=== PATIENT | male | born 1950 | race Caucasian/White ===

== ENCOUNTER 2016-09-17 16:08 | Inpatient (IN) | payer MEDICARE, MEDICAID ==
[2016-09-17] MEDS ORDERED: NORMAL SALINE 1000 ML 1,000 ML IV ONE (16:21)
--- NOTE | 2016-09-17 16:22 | ER Document Report ---
ED Medical Screen (RME) - General Stated Complaint: ABDOMINAL PAIN Notes: patient is a 66 year old male chronic Etoh user drinks one 1/5th etoh daily, had half today abdominal pain at 2pm LLQ abdominal pain with abdominal distension but sister says that distension is normal no emesis, nausea PMH: COPD, HTN I have greeted and performed a rapid initial assessment of this patient. A comprehensive ED assessment and evaluation of the patient, analysis of test results and completion of the medical decision making process will be conducted by additional ED providers. TRAVEL OUTSIDE OF THE [place] IN LAST 30 DAYS: No - Related Data Allergies/Adverse Reactions: No Known Allergies Allergy (Verified 09/17/16 16:18) Past Medical History - Social History Family history: CAD, Hyperlipidemia, Hypertension - Past Medical History Cardiac Medical History: Reports: Hx Hypertension Denies: Hx Heart Attack Pulmonary Medical History: Reports: Hx Bronchitis, Hx COPD Denies: Hx Asthma Neurological Medical History: Denies: Hx Cerebrovascular Accident, Hx Seizures GI Medical History: Denies: Hx Hepatitis, Hx Hiatal Hernia, Hx Ulcer Psychiatric Medical History: Reports: Hx Depression Infectious Medical History: Denies: Hx Hepatitis Past Surgical History: Denies: Hx Open Heart Surgery, Hx Pacemaker - Immunizations Hx Diphtheria, Pertussis, Tetanus Vaccination: No - 2009
[2016-09-17] MEDS ORDERED: LIDOCAINE 2% URO-JET 5 ML KIT MM ONE (17:29)
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
--- NOTE | 2016-09-17 17:57 | ER Document Report ---
ED GI/ - General Mode of Arrival: Ambulatory Information source: Patient TRAVEL OUTSIDE OF THE [place] IN LAST 30 DAYS: No <CHASTITY ASHLEY - Last Filed: 09/17/16 23:25> <ENIO ROBLEDO - Last Filed: 09/23/16 22:47> - General Chief Complaint: Abdominal Pain Stated Complaint: ABDOMINAL PAIN Notes: Patient is a 66-year-old male that presents to the emergency department today with complaints of diffuse abdominal pain. Patient states he drinks alcohol heavily daily, approximately a fifth of liquor a day. Patient states he does not get up in the middle of the night sebastian drink, he has never been in alcohol withdrawal to his knowledge. Patient is vomiting. Patient states he does not have liver disease that he knows of. (CHASTITY ASHLEY) - Related Data Allergies/Adverse Reactions: No Known Allergies Allergy (Verified 09/17/16 16:18) Home Medications: Current Home Medications Albuterol Sulfate [Albuterol Sulfate 2.5mg/3 mL] 3 ml NEB [id number] PRN 09/18/16 [ History] Amlodipine Besylate [Norvasc 10 mg Tablet] 10 mg PO DAILY 09/18/16 [History] Escitalopram Oxalate [Lexapro] 20 mg PO DAILY 09/18/16 [History] Fluticasone/Salmeterol [Advair 250-50 Diskus 14 Dose/Diskus] 1 puff IH BID 09/18 [History] Fluticasone/Vilanterol [Breo Ellipta 100-25 Mcg INH] 1 puff IH DAILY 09/18/16 [ History] Folic Acid [Folvite 1 mg Tablet] 2 mg PO DAILY 09/18/16 [History] Ipratropium/Albuterol Sulfate [Combivent Respimat 4 gm Mdi] 1 puff IH QID [History] Lisinopril [Prinivil] 20 mg PO DAILY 09/18/16 [History] Omeprazole 40 mg PO DAILY 09/18/16 [History] Potassium Chloride [K-Tab ER] 20 meq PO DAILY 09/18/16 [History] Rivaroxaban [Xarelto] 20 mg PO DAILY 09/18/16 [History] Spironolactone [Aldactone] 50 mg PO DAILY 09/18/16 [History] Thiamine HCl [Thiamine 100 mg Tablet] 100 mg PO DAILY 09/18/16 [History] Tiotropium [place] [Spiriva Handihaler 18 mcg/dose (30 Dose)] 18 mcg IH DAILY [History] Trazodone HCl [Desyrel] 100 mg PO BID 09/18/16 [History] Past Medical History - General Information source: Patient - Social History Smoking Status: Current Every Day Smoker Cigarette use (# per day): Yes Chew tobacco use (# tins/day): No Frequency of alcohol use: Heavy Drug Abuse: None Lives with: Family Family History: Reviewed & Not Pertinent, Other - SIBLING W/ SUDDEN CARDIAC IN HER 60's Patient has suicidal ideation: No Patient has homicidal ideation: No - Past Medical History Cardiac Medical History: Reports: Hx Hypertension Pulmonary Medical History: Reports: Hx Bronchitis, Hx COPD Psychiatric Medical History: Reports: Hx Depression Surgical Hx: Negative - Immunizations Hx Diphtheria, Pertussis, Tetanus Vaccination: No - 2009 Hx Pneumococcal Vaccination: 07/12/10 <CHASTITY ASHLEY - Last Filed: 09/17/16 23:25> Review of Systems - Review of Systems Constitutional: No symptoms reported EENT: No symptoms reported Cardiovascular: No symptoms reported Respiratory: No symptoms reported Gastrointestinal: See HPI, Abdominal pain. denies: Vomiting Genitourinary: No symptoms reported Male Genitourinary: No symptoms reported Musculoskeletal: No symptoms reported Skin: No symptoms reported Hematologic/Lymphatic: No symptoms reported Neurological/Psychological: No symptoms reported -: Yes All other systems reviewed and negative <CHASTITY ASHLEY - Last Filed: 09/17/16 23:25> Physical Exam - General General appearance: Appears well, Alert In distress: None - HEENT Head: Normocephalic, Atraumatic Eyes: Normal Extraocular movements intact: Yes - Respiratory Respiratory status: No respiratory distress Chest status: Nontender Breath sounds: Normal Chest palpation: Normal - Cardiovascular Rhythm: Regular Heart sounds: Normal auscultation Murmur: No - Abdominal Distension: Distended Bowel sounds: Hypoactive Tenderness: Other - Positive guarding, rebound, and rigidity. - Extremities General upper extremity: Normal inspection, Normal ROM. No: Edema General lower extremity: Normal inspection, Normal ROM. No: Edema - Neurological Neuro grossly intact: Yes Cognition: Normal Orientation: AAOx4 Speech: Normal - Psychological Associated symptoms: Normal affect, Normal mood - Skin Skin Temperature: Warm Skin Moisture: Dry Skin Color: Normal <CHASTITY ASHLEY - Last Filed: 09/17/16 23:25> Course - Laboratory Result Diagrams: 09/17/16 17:18 09/17/16 17:18 <CHASTITY ASHLEY - Last Filed: 09/17/16 23:25> - Laboratory Result Diagrams: 09/23/16 04:29 09/23/16 04:29 <MEENAENIO - Last Filed: 09/23/16 22:47> - Re-evaluation Re-evalutation: 09/17/16 18:05 I personally performed the services described in the documentation, reviewed and edited the documentation which was dictated to my scribe in my presence, and it accurately records my words and actions. presents emergency per with acute severe abdominal pain history of alcoholism initially seen and evaluated by Dr. Doe and sent over here for evaluation on the main side. Patient is tachycardic in severe abdominal pain with abdominal distention diffuse tenderness guarding and rebound. Patient is guaiac- negative from below. Asked for an acute flat and upright they stated they were in doing a C-arm procedure. Asked for a stat CT of the abdomen pelvis with IV contrast that they're up in the NICU and they would come this is a were done. Contacted Dr. Fields on his as call me did not respond and paged him at [phone] he called back and came to see the patient. In initially recommended a noncontrast CT and then an IV contrast CT patient was unable to tolerate by mouth contrast as he was vomiting. Patient with a history of cirrhosis chronic alcoholism ascites said she's had increased abdominal distention for months but has not sought out a primary care physician. He takes a lot of medications but only when he feels like it. He is not intoxicated currently says he is no history of withdrawal can go all night and sometimes told her without drinking. He is hypokalemic morning meds for that. Cover with antibiotics for spontaneous bacterial peritonitis his belly is soft no guarding rebound or rigidity. IV fluids and Ativan. Also given thiamine and folate improve with fluids and Ativan. No active signs of withdrawal currently blood pressure 124/84 heart rate 117. Spoke with Dr. Khan who agreed to admit the patient inpatient to IMCU. Covering him with cefotaxime plan interventional radiology drainage of ascitic fluid for analysis tomorrow patient does not have an acute abdomen currently and is not septic. I ordered cefotaxime over an hour ago nurse came today and said that we do not have it in the facility. When ahead and ordered vancomycin and Rocephin. 09/17/16 23:01 09/18/16 00:35 09/18/16 00:50 (ENIO ROBLEDO) - Vital Signs Vital signs: Temp Pulse Resp BP Pulse Ox 97.7 F 74 18 177/80 H 100 09/23/16 19:34 09/23/16 20:06 09/23/16 20:06 09/23/16 19:34 09/23/16 20:06 - Laboratory Laboratory results interpreted by me: 09/17/16 09/17/16 09/17/16 17:18 17:18 17:18 RBC 3.84 L MCV 118 H MCH 41.5 H Seg Neuts % (Manual) 81 H PT Potassium 3.0 L* Chloride 95 L BUN 5 L Glucose 129 H Lactic Acid 4.7 H Magnesium Total Bilirubin 4.3 H Direct Bilirubin 0.7 H AST 173 H Alkaline Phosphatase 299 H Ammonia Albumin 3.0 L Urine Protein Urine Nitrite Urine Bilirubin Urine Urobilinogen 09/17/16 09/17/16 09/17/16 17:18 17:48 17:55 RBC MCV MCH Seg Neuts % (Manual) PT 15.6 H Potassium Chloride BUN Glucose Lactic Acid Magnesium 1.1 L* Total Bilirubin Direct Bilirubin AST Alkaline Phosphatase Ammonia Albumin Urine Protein 30 H Urine Nitrite POSITIVE H Urine Bilirubin MODERATE H Urine Urobilinogen 4.0 H 09/17/16 18:30 RBC MCV MCH Seg Neuts % (Manual) PT Potassium Chloride BUN Glucose Lactic Acid Magnesium Total Bilirubin Direct Bilirubin AST Alkaline Phosphatase Ammonia 42.0 H Albumin Urine Protein Urine Nitrite Urine Bilirubin Urine Urobilinogen Critical Care Note - Critical Care Note Total time excluding time spent on procedures (mins): 60 <ENIO ROBLEDO - Last Filed: 09/23/16 22:47> Discharge <CHASTITY ASHLEY - Last Filed: 09/17/16 23:25> - Discharge Admitting Provider: Hospitalist Unit Admitted: IMCU <ENIO ROBLEDO - Last Filed: 09/23/16 22:47> - Discharge Clinical Impression: Hepatic cirrhosis Abdominal pain Qualifiers: Abdominal location: unspecified location Qualified Code(s): R10.9 - Unspecified abdominal pain Ascites Qualifiers: Ascites type: due to alcoholic cirrhosis Qualified Code(s): K70.31 - Alcoholic cirrhosis of liver with ascites Disposition: ADMITTED INPATIENT Scribe Documentation - Scribe Written by Scribe:: Justus Hansen, [id number] 09/17/2016 acting as scribe for :: Meena <CHASTITY ASHLEY - Last Filed: 09/17/16 23:25>
[2016-09-17 17:59] LABS: HEMATOCRIT 45.5 % (37.9-51.0); HEMOGLOBIN 15.9 g/dL (13.5-17.0); HGB HCT DIFFERENCE 2.2; MEAN CORPUSCULAR HEMOGLOBIN 41.5 pg (27.0-33.4); MEAN CORPUSCULAR HGB CONC 35.1 g/dL (32.0-36.0); MEAN CORPUSCULAR VOLUME 118 fl (80-97); RED BLOOD COUNT 3.84 10^6/uL (4.35-5.55); WHITE BLOOD COUNT 4.9 10^3/uL (4.0-10.5)
[2016-09-17] MEDS ORDERED: FENTANYL CITRATE INJ/PF 100 MCG/2 ML AMPUL IV ONE (18:03)
[2016-09-17 18:14] LABS: ALANINE AMINOTRANSFERASE 52 U/L (21-72); ALCOHOL 63 mg/dL (NONE DETECTED); ALKALINE PHOSPHATASE 299 U/L (38-126); ANION GAP 16 (5-19); ASPARTATE AMINO TRANSFERASE 173 U/L (17-59); BILIRUBIN,DIRECT 0.7 mg/dL (0.0-0.3); BILIRUBIN,TOTAL 4.3 mg/dL (0.2-1.3); BLOOD UREA NITROGEN 5 mg/dL (7-20); CALCIUM 8.9 mg/dL (8.4-10.2); CARBON DIOXIDE 27 mmol/L (22-30); CHLORIDE 95 mmol/L (98-107); CREATININE RESULT 0.67 mg/dL (0.52-1.25); GLUCOSE 129 mg/dL (75-110); LIPASE 42.7 U/L (23-300); SODIUM 137.6 mmol/L (137-145); TOTAL PROTEIN 7.4 g/dL (6.3-8.2)
[2016-09-17 18:24] LABS: PROTHROMBIN TIME 15.6 SEC (11.4-15.4)
[2016-09-17 18:25] LABS: PARTIAL THROMBOPLASTIN TIME 33.1 SEC (23.5-35.8)
[2016-09-17 18:30] LABS: BASOPHILS % (MANUAL) 0 % (0-2); EOSINOPHILS % (MANUAL) 1 % (0-6); LYMPHOCYTES % (MANUAL) 13 % (13-45); TOTAL CELLS COUNTED 100
[2016-09-17 18:32] LABS: ANISOCYTOSIS SLIGHT; TARGET CELLS SLIGHT; TOXIC GRANULATION SLIGHT
[2016-09-17 19:28] LABS: APPEARANCE,URINE SLIGHTLY-CLOUDY; BILIRUBIN,URINE MODERATE (NEGATIVE); GLUCOSE, URINE NEGATIVE (NEGATIVE); KETONES,URINE NEGATIVE (NEGATIVE); LEUKOCYTE ESTERASE,URINE NEGATIVE (NEGATIVE); NITRITE,URINE POSITIVE (NEGATIVE); PROTEIN,URINE 30 mg/dL (NEGATIVE)
--- NOTE | 2016-09-17 20:06 | EKG REPORT ---
SEVERITY:- ABNORMAL ECG - SINUS TACHYCARDIA PROBABLE INFERIOR INFARCT, OLD VPC : Confirmed by: Bennie Estrella 17-Sep-2016 20:05:49
[2016-09-17] MEDS ORDERED: ONDANSETRON HCL INJ/PF 4 MG/2 ML SDV IV ONE (20:28)
[2016-09-17] MEDS ORDERED: ONDANSETRON HCL INJ/PF 4 MG/2 ML SDV ONE (20:31)
[2016-09-17] MEDS ORDERED: LORAZEPAM INJ 2 MG/1 ML VIAL IV ONE (22:55)
[2016-09-17] MEDS ORDERED: CEFOTAXIME INJ 1 GM VIAL IV ONE (23:03)
[2016-09-18] MEDS: POTASSI CL 20 MEQ/50 ML RIDER 50 ML IV SCH ×2 (00:09→02:17)
[2016-09-18] MEDS: NORMAL SALINE 1000 ML 1,000 ML IV PRN ×2 (00:11→01:41)
[2016-09-18] MEDS ORDERED: THIAMINE HCL 100 MG, FOLIC ACID 1 MG in NORMAL SALINE 50 ML IV SCH (00:45)
[2016-09-18] MEDS ORDERED: CEFTRIAXONE INJ 1000 MG VIAL IV ONE (00:49)
[2016-09-18] MEDS ORDERED: VANCOMYCIN HCL INJ 1000 MG VIAL IV ONE (00:49)
[2016-09-18] MEDS ORDERED: THIAMINE HCL INJ 200 MG/2 ML VIAL IV SCH (01:00)
[2016-09-18] MEDS ORDERED: FOLIC ACID INJ 5 MG/1 ML 10 ML VIAL IV SCH (01:00)
[2016-09-18] MEDS: MAGNESIUM SULFATE/D5W 100 ML IV SCH ×2 (01:49→04:14)
[2016-09-18] MEDS ORDERED: NICOTINE 21 MG/24 HR PATCH.TD24 TD PRN (02:54)
[2016-09-18] MEDS ORDERED: MVI, ADULT NO.1 WITH VIT K INJ 10 ML VIAL IV PRN (03:02)
[2016-09-18] MEDS ORDERED: MAGNESIUM SULFATE/D5W 1 GM/100 ML RTUPB IV ONE (03:15)
[2016-09-18 03:31] LABS: URINE BARBITURATES SCREEN NEGATIVE; URINE METHADONE SCREEN NEGATIVE; URINE OPIATES LOW NEGATIVE; URINE PHENCYCLIDINE SCREEN NEGATIVE
--- NOTE | 2016-09-18 03:42 | PDOC H&P ---
History of Present Illness Admission Date/PCP: 09/18/16 00:53 SUSHIL GAO MD Patient complains of: Abdominal pain History of Present Illness: LUKE BEE is a 66 year old male with long-standing alcohol abuse , approximately a fifth of whiskey per day, along with pack and a half of cigarettes per day, COPD, recent lower extremity DVT, chronic noncompliance with medications and instructions, arthritis, easy bruising, and mild esophageal reflux disease, who presents to the emergency room for evaluation of a less than 24-hour history of intermittent cramping diffuse abdominal pain. Certain movements seem to make the pain worse. Less pain now. Denied nausea vomiting, but has had a number of episodes of same in the emergency room. Admitted to positive chills. No diarrhea or dysuria, or chest pain. States his abdomen has been steadily swelling over the last several days. Denies any prior history of abdominal swelling. Patient denies any history of "fluid on my belly." Prior to my seeing the patient, patient was seen by the on-call general surgeon. Note is pending. Patient has been discussed with emergency room physician who evaluated the patient. Patient himself thought he was in [place], [place]. Was not sure why he was in the emergency room.. Laboratory results are listed in [facility] and are reviewed. X-ray summary results are listed below, with full report(s) reviewed. . EKG reviewed. March 2015. Social history/personal habits: . Lives alone. One daughter. Unemployed. Personal habits as noted above. Denies illicit drug use. Allergies/adverse reactions NKDA. Home medications Home medications initially autopopulated into [employer] may not accurately reflect patient's true medications, dosages, and/or frequencies. Patient freely admits he is not compliant with his medications. Unfortunately, patient uncertain of medications/dosages/frequencies. Order has been entered for staff to contact family, outpatient physician, and/or pharmacy to more accurately determine medications, dosages, and frequencies and to contact physician when that has been accomplished. REVIEW OF SYSTEMS: Constitutional: See history and present illness. Eyes: Wears glasses. ENT: No swallowing problems or complaints. No hearing problems or complaints. Pulmonary: No current complaints. Cardiovascular: No current complaints, including chest pain. Gastrointestinal: See history and present illness. Skin: No current complaints, including rashes. Hematologic: Easy bruising. Neurologic: No current complaints, including numbness or tingling. Musculoskeletal: Joint pain from arthritis. Psychiatric: Mild depression; denies suicidal or homicidal ideation. Endocrine: No current complaints, including polyuria. Genitourinary: No current complaints, including dysuria. PHYSICAL EXAMINATION: Temperature 97.3. Blood pressure 135/72. Respirations are 17 and unlabored. 98% saturation on room air. 5 feet 11 inches tall. 68 kg. BMI 20.9 kg/m. Weight seems a bit low; will have nursing staff reweigh patient. Chronically ill somewhat disheveled bearded male who appears a bit older than his stated age. Initially asleep, but awakens easily. Appears somewhat fatigued. Otherwise, pleasant awake alert and cooperative. Mildly anxious, without agitation. Skin is warm and dry. No grossly obvious evidence of rash in areas of skin examined. No subcutaneous nodules palpated. ENT: Hearing grossly normal to normal conversation. Tongue midline on protrusion pink and slightly tacky. Eyes: No scleral icterus. Pupils equal and reactive to light at 4 mm. [place] conjunctivae. Neck is supple and nontender to gentle active range of motion and palpation. Midline trachea. No palpable thyroid nodule mass enlargement or tenderness. Lymphatic: No palpable cervical or clavicular nodes. Neck and lymphatic exams limited by patient body habitus. Psychiatric: Fair insight into acute and chronic medical issues. See history and present illness.. Lungs: Auscultation reveals clear and equal breath sounds bilaterally. No use of accessory respiratory muscles. Cardiovascular: Heart regular rate and rhythm, without gallop murmur or rub. No carotid or abdominal aortic bruits. No ankle or pedal edema. Faintly palpable dorsalis pedis pulses. Abdomen: soft, rather distended with positive bowel sounds. Unable to adequately evaluate abdomen for masses or organomegaly due to distention. Scant primarily upper abdominal diffuse discomfort to palpation. Certainly no evidence of guarding or peritoneal signs. Extremities: Feet are warm and dry. No calf tenderness to compression. No grossly obvious visual evidence of calf swelling. Gentle manipulation of lower extremities fails to reveal any obvious evidence of injury or instability to knees hips or ankles. Neurologic: Moves upper extremities grossly normally. Patellar reflexes absent. Absent Babinski. Light touch is intact at feet. Dorsiflexion and plantarflexion of feet 5 / 5 and symmetric. Past Medical History Cardiac Medical History: Reports: DVT, Hypertension Denies: Myocardial Infarction, Hyperlipidema Pulmonary Medical History: Reports: Bronchitis, Chronic Obstructive Pulmonary Disease (COPD) Denies: Asthma Neurological Medical History: Denies: Hemorrhagic CVA, Ischemic CVA, Seizures Endocrine Medical History: Denies: Diabetes Mellitus Type 1, Diabetes Mellitus Type 2, Hyperthyroidism, Hypothyroidism Renal/ Medical History: Reports: None GI Medical History: Reports: Gastroesophageal Reflux Disease Denies: Cirrhosis, Hepatitis, Hiatal Hernia, Peptic Ulcer Disease Musculoskeltal Medical History: Reports: Arthritis Skin Medical History: Reports: None Psychiatric Medical History: Reports: Alcohol Dependency, Tobacco Dependency Denies: Depression, General Anxiety Disorder, Substance Abuse Hematology: Denies: Anemia, Sickle Cell Disease Infectious Medical History: Denies: Hepatitis B, Hepatitis C Past Surgical History Past Surgical History: Reports: None Social History Information Source: Patient, Emergency Med Personnel, [facility] Records Lives with: Alone Smoking Status: Current Every Day Smoker Frequency of Alcohol Use: Heavy Hx Recreational Drug Use: No Hx Prescription Drug Abuse: No - Advance Directive Resuscitation Status: Full Code Surrogate healthcare decision maker:: His sister Chantale Encinas Family History Family History: Reviewed & Not Pertinent, Other - SIBLING W/ SUDDEN CARDIAC IN HER 60's Parental Family History Reviewed: Yes Children Family History Reviewed: Yes Sibling(s) Family History Reviewed.: Yes Medication/Allergy Home Medications: Albuterol Sulfate [Albuterol Sulfate 2.5mg/3 mL] 3 ml NEB [id number] PRN 09/18/16 Amlodipine Besylate [Norvasc 10 mg Tablet] 10 mg PO DAILY 09/18/16 Escitalopram Oxalate [Lexapro] 20 mg PO DAILY 09/18/16 Fluticasone/Salmeterol [Advair 250-50 Diskus 14 Dose/Diskus] 1 puff IH BID 09/18 Fluticasone/Vilanterol [Breo Ellipta 100-25 Mcg INH] 1 puff IH DAILY 09/18/16 Ipratropium/Albuterol Sulfate [Combivent Respimat 4 gm Mdi] 1 puff IH QID Lisinopril [Prinivil] 20 mg PO DAILY 09/18/16 RX: Folic Acid [Folvite 1 mg Tablet] 2 mg PO DAILY 09/18/16 RX: Omeprazole 40 mg PO DAILY 09/18/16 RX: Potassium Chloride [K-Tab ER] 20 meq PO DAILY 09/18/16 RX: Trazodone HCl [Desyrel] 100 mg PO BID 09/18/16 Rivaroxaban [Xarelto] 20 mg PO DAILY 09/18/16 Spironolactone [Aldactone] 50 mg PO DAILY 09/18/16 Thiamine HCl [Thiamine 100 mg Tablet] 100 mg PO DAILY 09/18/16 Tiotropium Roper [Spiriva Handihaler 18 mcg/dose (30 Dose)] 18 mcg IH DAILY Allergies/Adverse Reactions: No Known Allergies Allergy (Verified 09/17/16 16:18) Physical Exam Vital Signs: Temp Pulse Resp BP Pulse Ox 97.3 F 139 H 18 135/72 H 99 09/17/16 16:21 09/17/16 18:20 09/18/16 02:00 09/18/16 02:00 09/17/16 22:03 Results Impressions: Chest X-Ray 09/17/16 17:47 IMPRESSION: NO ACUTE RADIOGRAPHIC FINDING IN THE CHEST. Abdomen/Pelvis CT 09/17/16 18:03 IMPRESSION: 1. MARKEDLY HETEROGENOUS DIFFUSE LOW-ATTENUATION THROUGHOUT THE LIVER, MOST LIKELY DUE TO CIRRHOSIS. 2. ASCITES. 3. AVASCULAR NECROSIS OF THE RIGHT AND LEFT FEMORAL HEAD, SIMILAR APPEARANCE COMPARED TO THE PRIOR STUDY. 4. SURGICAL CHANGES WITH RIGHT HEMICOLECTOMY. Assessment & Plan - Diagnosis (1) Alcohol intoxication Qualifiers: Complication of substance-induced condition: uncomplicated Qualified Code(s): F10.120 - Alcohol abuse with intoxication, uncomplicated Is this a current diagnosis for this admission?: YesPlan: Alcohol withdrawal protocol, including intravenous Ativan and banana bag. (2) Ascites Qualifiers: Ascites type: due to alcoholic cirrhosis Qualified Code(s): K70.31 - Alcoholic cirrhosis of liver with ascites Is this a current diagnosis for this admission?: YesPlan: Suspected spontaneous bacterial peritonitis. Treatment for same. Will include albumin today and on day 3. Paracentesis. I have strongly encouraged patient not to get out of bed , to avoid a fall with injury. Knee high SCDs for DVT prophylaxis, along with subcutaneous heparin. Impression and plans were discussed with patient, who concurs. Time spent in evaluation and management of patient: 66 minutes. (3) Elevated LFTs Is this a current diagnosis for this admission?: Yes (4) Hepatic encephalopathy Is this a current diagnosis for this admission?: YesPlan: Oral lactulose. (5) Hypokalemia Is this a current diagnosis for this admission?: YesPlan: Supplement With follow-up chemistry. (6) Hypomagnesemia Is this a current diagnosis for this admission?: YesPlan: Supplement With follow-up chemistry. (7) UTI (urinary tract infection) Qualifiers: Urinary tract infection type: site unspecified Is this a current diagnosis for this admission?: YesPlan: Blood and urine cultures. [facility]. (8) History of DVT (deep vein thrombosis) Is this a current diagnosis for this admission?: YesPlan: High risk for systemic anticoagulation, given his alcohol abuse and known chronic noncompliance. (9) Alcohol dependency Qualifiers: Substance use status: with intoxication Complication of substance- induced condition: uncomplicated Qualified Code(s): F10.220 - Alcohol dependence with intoxication, uncomplicated Is this a current diagnosis for this admission?: Yes (10) COPD (chronic obstructive pulmonary disease) Qualifiers: COPD type: unspecified COPD Qualified Code(s): J44.9 - Chronic obstructive pulmonary disease, unspecified Is this a current diagnosis for this admission?: YesPlan: When necessary DuoNeb.Resume home medications as appropriate once these have been determined and reviewed. (11) Cirrhosis Qualifiers: Hepatic cirrhosis type: alcoholic cirrhosis Ascites presence: with ascites Qualified Code(s): K70.31 - Alcoholic cirrhosis of liver with ascites Is this a current diagnosis for this admission?: Yes (12) Noncompliance Is this a current diagnosis for this admission?: Yes (13) Tobacco dependency Is this a current diagnosis for this admission?: YesPlan: When necessary nicotine patch. - Inpatient Certification Based on my medical assessment, after consideration of the patient's comorbidities, presenting symptoms, or acuity I expect that the services needed warrant INPATIENT care.: Yes I certify that my determination is in accordance with my understanding of Medicare's requirements for reasonable and necessary INPATIENT services [42 CFR 412.3e].: Yes Medical Necessity: Significant Comorbidiites Make Outpatient Treatment Too Risky , Need Close Monitoring Due to Risk of Patient Decompensation, Need For Continuous Telemetry Monitoring, Need for IV Antibiotics, Risk of Complication if Not Cared For in Hospital, Risk of Diagnosis Which Will Require Inpatient Eval/Care/Monitoring Post Hospital Care: D/C or Transfer Summary
[2016-09-18 03:57] LABS: HEMATOCRIT 40.9 % (37.9-51.0); HEMOGLOBIN 14.3 g/dL (13.5-17.0); MEAN CORPUSCULAR HEMOGLOBIN 41.9 pg (27.0-33.4); MEAN CORPUSCULAR HGB CONC 34.9 g/dL (32.0-36.0); RED BLOOD COUNT 3.41 10^6/uL (4.35-5.55); RED CELL DISTRIBUTION WIDTH 14.3 % (11.5-14.0)
[2016-09-18] MEDS ORDERED: LACTULOSE SYRUP 20 GM/30 ML UDCUP PO ONE (04:00)
[2016-09-18 04:04] LABS: ALANINE AMINOTRANSFERASE 48 U/L (21-72); ALBUMIN 2.6 g/dL (3.5-5.0); ALKALINE PHOSPHATASE 202 U/L (38-126); ANION GAP 13 (5-19); ASPARTATE AMINO TRANSFERASE 142 U/L (17-59); BILIRUBIN,DIRECT 1.8 mg/dL (0.0-0.3); BLOOD UREA NITROGEN 5 mg/dL (7-20); CALCIUM 7.9 mg/dL (8.4-10.2); CARBON DIOXIDE 26 mmol/L (22-30); CHLORIDE 101 mmol/L (98-107); CREATININE RESULT 0.73 mg/dL (0.52-1.25); GLUCOSE 132 mg/dL (75-110); POTASSIUM 3.8 mmol/L (3.6-5.0); SODIUM 139.6 mmol/L (137-145); TOTAL PROTEIN 6.6 g/dL (6.3-8.2)
[2016-09-18] MEDS: IPRATROPIUM/ALBUTEROL 0.5-2.5 MG/3 ML AMPUL NEB PRN ×2 (04:33→21:16)
[2016-09-18 04:37] LABS: MEAN CORPUSCULAR VOLUME 120 fl (80-97)
[2016-09-18 04:38] LABS: ANISOCYTOSIS SLIGHT; BAND NEUTROPHILS % (MANUAL) 3 % (3-5); BASOPHILS % (MANUAL) 0 % (0-2); EOSINOPHILS % (MANUAL) 0 % (0-6); LYMPHOCYTES % (MANUAL) 5 % (13-45); PLATELET CLUMPS PRESENT; TARGET CELLS SLIGHT; TOTAL CELLS COUNTED 100; TOXIC GRANULATION SLIGHT; TOXIC VACUOLATION PRESENT
[2016-09-18] MEDS ORDERED: VANCOMYCIN HCL INJ 1000 MG VIAL ONE (05:14)
[2016-09-18] MEDS ORDERED: ALBUMIN HUMAN 100 ML IV ONE (05:14)
[2016-09-18] MEDS: ALBUMIN HUMAN 50 ML IV SCH ×8 (05:35→17:42)
[2016-09-18] MEDS: LACTULOSE SYRUP 20 GM/30 ML UDCUP PO SCH ×3 (06:27→22:52)
[2016-09-18] MEDS ORDERED: LORAZEPAM INJ 2 MG/1 ML VIAL ONE (07:20)
[2016-09-18] MEDS: LORAZEPAM INJ 2 MG/1 ML VIAL (TAPER DOSING) IV SCH ×3 (07:24→18:39)
[2016-09-18] MEDS: HEPARIN SOD (PORCINE) 5,000 UNIT/ML 1 ML SYRINGE SUBCUT SCH ×2 (09:06→21:22)
[2016-09-18 09:25] LABS: PATH REVIEW PATHOLOGIST REVIEWED
[2016-09-18] MEDS: CEFTRIAXONE 2 GM/D5W RTU 50 ML IV SCH (09:56)
[2016-09-18] MEDS ORDERED: NORMAL SALINE 1000 ML 1,000 ML with THIAMINE HCL 100 MG, MVI, ADULT NO.1 WITH VIT K 10 ... IV SCH ×4 (10:00)
[2016-09-18] MEDS: METRONIDAZOLE 500 MG/NS RTU 100 ML IV SCH ×3 (11:17→23:27)
[2016-09-18] MEDS ORDERED: ALBUMIN HUMAN 50 ML IV SCH (13:30)
[2016-09-18 16:06] LABS: FLUID TYPE PERITONEAL
[2016-09-18 16:07] LABS: FLUID APPEARANCE HAZY; FLUID RBC AVERAGE 1.5; FLUID RBC DILUENT USED SALINE; FLUID RBC DILUTION FACTOR 5; FLUID RBC SIDE 1 2; FLUID RBC SIDE 2 1; TOTAL RBC SQUARES COUNTED FLD 225
[2016-09-18] MEDS: POTASSI CL 20 MEQ/NS 1L 1,000 ML IV PRN (16:32)
[2016-09-18] MEDS ORDERED: ALBUMIN HUMAN 50 ML IV ONE (22:00)
[2016-09-19 00:03] LABS: ANION GAP 10 (5-19); BLOOD UREA NITROGEN 8 mg/dL (7-20); CALCIUM 8.4 mg/dL (8.4-10.2); CARBON DIOXIDE 26 mmol/L (22-30); CHLORIDE 105 mmol/L (98-107); CREATININE RESULT 0.53 mg/dL (0.52-1.25); GLUCOSE 88 mg/dL (75-110); MAGNESIUM 1.6 mg/dL (1.6-2.3); POTASSIUM 3.5 mmol/L (3.6-5.0); SODIUM 141.4 mmol/L (137-145)
[2016-09-19] MEDS: LORAZEPAM INJ 2 MG/1 ML VIAL (TAPER DOSING) IV SCH (00:40)
[2016-09-19] MEDS ORDERED: POTASSI CL 20 MEQ/50 ML RIDER 20 MEQ/50 ML RTUPB IV ONE (02:00)
[2016-09-19] MEDS ORDERED: LORAZEPAM INJ 2 MG/1 ML VIAL IV PRN ×2 (02:18)
[2016-09-19] MEDS: POTASSI CL 20 MEQ/NS 1L 1,000 ML IV PRN (02:40)
[2016-09-19] MEDS: IPRATROPIUM/ALBUTEROL 0.5-2.5 MG/3 ML AMPUL NEB PRN ×3 (05:19→23:48)
[2016-09-19] MEDS ORDERED: LACTULOSE SYRUP 20 GM/30 ML UDCUP PR ONE (05:45)
[2016-09-19] MEDS: METRONIDAZOLE 500 MG/NS RTU 100 ML IV SCH ×3 (06:08→17:03)
[2016-09-19 06:11] LABS: VENOUS BLOOD BASE EXCESS 1.4 mmol/L; VENOUS BLOOD HCO3 26.6 mmol/L (20-32); VENOUS BLOOD PCO2 44.2 mmHg (35-63); VENOUS BLOOD PH 7.4 (7.30-7.42)
[2016-09-19] MEDS ORDERED: LACTULOSE SYRUP 20 GM/30 ML UDCUP ONE ×2 (06:13→22:34)
[2016-09-19] MEDS: LORAZEPAM INJ 2 MG/1 ML VIAL IV PRN ×4 (06:19→22:53)
[2016-09-19 06:36] LABS: ANION GAP 9 (5-19); BLOOD UREA NITROGEN 9 mg/dL (7-20); CALCIUM 8.5 mg/dL (8.4-10.2); CARBON DIOXIDE 26 mmol/L (22-30); CHLORIDE 108 mmol/L (98-107); CREATININE RESULT 0.53 mg/dL (0.52-1.25); GLUCOSE 87 mg/dL (75-110); POTASSIUM 3.7 mmol/L (3.6-5.0); SODIUM 142.5 mmol/L (137-145)
--- NOTE | 2016-09-19 09:00 | PDOC PROGRESS REPORT ---
Subjective Progress Note for:: 09/19/16 Subjective:: Patient is altered, and reported episodes of aspiration. Patient is sedated with Ativan, ammonia level is elevated. No reported temperature spikes. Patient is coughing. No reported chills or fever. Lactulose enema was given. Physical Exam Vital Signs: Temp Pulse Resp BP Pulse Ox 98.5 F 100 16 118/71 95 09/19/16 07:29 09/19/16 07:29 09/19/16 07:29 09/19/16 07:29 09/19/16 07:29 Intake & Output 09/18/16 09/19/16 09/20/16 06:59 06:59 07:59 Intake Total 550 1915 Output Total 200 550 Balance 350 1365 Weight 83.7 kg General appearance: PRESENT: mild distress, other - Patient awakes occasionally and respond but falls back to sleep. Head exam: PRESENT: normocephalic Eye exam: PRESENT: conjunctiva pink Mouth exam: PRESENT: neck supple Neck exam: ABSENT: JVD Respiratory exam: PRESENT: rhonchi - Scattered bilateral. ABSENT: wheezes Cardiovascular exam: PRESENT: RRR, tachycardia. ABSENT: gallop GI/Abdominal exam: PRESENT: distended - Slightly, hypoactive bowel sounds, soft , other - Mild tympany to percussion Extremities exam: ABSENT: pedal edema Psychiatric exam: ABSENT: agitated Focused psych exam: ABSENT: restlessness Skin exam: PRESENT: dry, warm. ABSENT: cyanosis Results Laboratory Results: 09/18/16 03:20 09/19/16 05:52 09/18/16 09/18/16 09/18/16 03:20 14:05 23:33 WBC 10.0 D RBC 3.41 L Hgb 14.3 Hct 40.9 MCV 120 H MCH 41.9 H MCHC 34.9 RDW 14.3 H Plt Count 102 L VBG pH VBG pCO2 VBG HCO3 VBG Base Excess Sodium 141.4 Potassium 3.5 L Chloride 105 Carbon Dioxide 26 Anion Gap 10 BUN 8 Creatinine 0.53 Est GFR ( Amer) > 60 Est GFR (Non-Af Amer) > 60 Glucose 88 Calcium 8.4 Magnesium 1.6 Ammonia Fluid Type PERITONEAL Fluid Source ASCITES Fluid Color YELLOW Fluid Appearance HAZY Fluid Viscosity SLIGHTLY VISCOUS Fluid WBC 93416 Fluid RBC 8 09/19/16 09/19/16 09/19/16 05:52 05:52 05:52 WBC RBC Hgb Hct MCV MCH MCHC RDW Plt Count VBG pH 7.40 VBG pCO2 44.2 VBG HCO3 26.6 VBG Base Excess 1.4 Sodium 142.5 Potassium 3.7 Chloride 108 H Carbon Dioxide 26 Anion Gap 9 BUN 9 Creatinine 0.53 Est GFR ( Amer) > 60 Est GFR (Non-Af Amer) > 60 Glucose 87 Calcium 8.5 Magnesium Ammonia 70.3 H Fluid Type Fluid Source Fluid Color Fluid Appearance Fluid Viscosity Fluid WBC Fluid RBC Impressions: Chest X-Ray 09/17/16 17:47 IMPRESSION: NO ACUTE RADIOGRAPHIC FINDING IN THE CHEST. Abdomen/Pelvis CT 09/17/16 18:03 IMPRESSION: 1. MARKEDLY HETEROGENOUS DIFFUSE LOW-ATTENUATION THROUGHOUT THE LIVER, MOST LIKELY DUE TO CIRRHOSIS. 2. ASCITES. 3. AVASCULAR NECROSIS OF THE RIGHT AND LEFT FEMORAL HEAD, SIMILAR APPEARANCE COMPARED TO THE PRIOR STUDY. 4. SURGICAL CHANGES WITH RIGHT HEMICOLECTOMY. Paracentesis Ultrasound 09/18/16 02:59 IMPRESSION: Successful ultrasound-guided therapeutic and diagnostic paracentesis Assessment & Plan - Diagnosis (1) Hepatic encephalopathy Is this a current diagnosis for this admission?: Yes (2) Alcohol intoxication Qualifiers: Complication of substance-induced condition: uncomplicated Qualified Code(s): F10.120 - Alcohol abuse with intoxication, uncomplicated Is this a current diagnosis for this admission?: Yes (3) Ascites Qualifiers: Ascites type: due to alcoholic cirrhosis Qualified Code(s): K70.31 - Alcoholic cirrhosis of liver with ascites Is this a current diagnosis for this admission?: Yes (4) UTI (urinary tract infection) Qualifiers: Urinary tract infection type: site unspecified Is this a current diagnosis for this admission?: Yes (5) Liver cirrhosis, alcoholic Qualifiers: Ascites presence: with ascites Qualified Code(s): K70.31 - Alcoholic cirrhosis of liver with ascites Is this a current diagnosis for this admission?: Yes (6) Hypokalemia Is this a current diagnosis for this admission?: Yes (7) Hypomagnesemia Is this a current diagnosis for this admission?: Yes (8) COPD (chronic obstructive pulmonary disease) Qualifiers: COPD type: unspecified COPD Qualified Code(s): J44.9 - Chronic obstructive pulmonary disease, unspecified Is this a current diagnosis for this admission?: Yes (9) Hypertension Qualifiers: Hypertension type: essential hypertension Qualified Code(s): I10 - Essential (primary) hypertension Is this a current diagnosis for this admission?: Yes (10) GERD (gastroesophageal reflux disease) Qualifiers: Esophagitis presence: without esophagitis Qualified Code(s): K21.9 - Gastro-esophageal reflux disease without esophagitis Is this a current diagnosis for this admission?: Yes (11) Avascular necrosis of bones of both hips Is this a current diagnosis for this admission?: Yes (12) History of DVT (deep vein thrombosis) Is this a current diagnosis for this admission?: Yes - Time Time Spent with patient: 25-34 minutes - Plan Summary Plan Summary: We will discontinue Ativan higher dose and just keep her on 2 mg every 2 hours when necessary. In this way we can reassess his mental status. We will recheck ammonia level and he received a lactulose enema. We will continue IV hydration and obtain chest x-ray, discontinue albumin, since patient is having congestion. Blood pressure has been stable. Continue antibiotics and Flagyl was added. Follow cultures. Patient had paracentesis done by interventional radiology.
[2016-09-19] MEDS: CEFTRIAXONE 2 GM/D5W RTU 50 ML IV SCH (09:59)
[2016-09-19] MEDS ORDERED: NORMAL SALINE 1000 ML 1,000 ML with THIAMINE HCL 100 MG, MVI, ADULT NO.1 WITH VIT K 10 ... IV ONE ×4 (10:00)
[2016-09-19] MEDS: LACTULOSE SYRUP 20 GM/30 ML UDCUP PR SCH ×2 (10:00→22:53)
[2016-09-19] MEDS: HEPARIN SOD (PORCINE) 5,000 UNIT/ML 1 ML SYRINGE SUBCUT SCH ×2 (10:00→22:53)
[2016-09-20] MEDS: METRONIDAZOLE 500 MG/NS RTU 100 ML IV SCH ×5 (00:20→23:41)
[2016-09-20] MEDS: POTASSI CL 20 MEQ/NS 1L 1,000 ML IV PRN ×2 (00:51→17:40)
[2016-09-20] MEDS: LORAZEPAM INJ 2 MG/1 ML VIAL IV PRN (01:31)
[2016-09-20 05:01] LABS: HEMATOCRIT 34.5 % (37.9-51.0); HGB HCT DIFFERENCE 2.1; MEAN CORPUSCULAR HEMOGLOBIN 42.5 pg (27.0-33.4); MEAN CORPUSCULAR HGB CONC 35.5 g/dL (32.0-36.0); MEAN CORPUSCULAR VOLUME 120 fl (80-97); RED BLOOD COUNT 2.88 10^6/uL (4.35-5.55); RED CELL DISTRIBUTION WIDTH 13.9 % (11.5-14.0); WHITE BLOOD COUNT 8.4 10^3/uL (4.0-10.5)
[2016-09-20 05:11] LABS: ANION GAP 7 (5-19); BLOOD UREA NITROGEN 13 mg/dL (7-20); CALCIUM 8.2 mg/dL (8.4-10.2); CARBON DIOXIDE 26 mmol/L (22-30); CHLORIDE 110 mmol/L (98-107); CREATININE RESULT 0.44 mg/dL (0.52-1.25); GLUCOSE 92 mg/dL (75-110); POTASSIUM 3.7 mmol/L (3.6-5.0); SODIUM 142.9 mmol/L (137-145)
[2016-09-20 05:26] LABS: HEMOGLOBIN 12.2 g/dL (13.5-17.0)
[2016-09-20 08:36] LABS: ARTERIAL BLOOD BASE EXCESS 0.1 mmol/L
[2016-09-20] MEDS ORDERED: PIPERACILLIN/TAZOBACTAM 3.375 GM VIAL IV SCH (09:30)
--- NOTE | 2016-09-20 09:40 | PDOC PROGRESS REPORT ---
Subjective Progress Note for:: 09/20/16 Subjective:: Patient remains altered, reported episodes of aspiration the other day. Patient received 1 dose of Ativan this morning, ammonia level is elevated but trending down. No reported temperature spikes. Patient is coughing. No reported chills or fever. Lactulose enema being given. Physical Exam Vital Signs: Temp Pulse Resp BP Pulse Ox 99.4 F 117 H 26 H 152/72 H 93 09/20/16 07:32 09/20/16 07:32 09/20/16 07:32 09/20/16 07:32 09/20/16 07:32 Intake & Output 09/19/16 09/20/16 09/21/16 05:59 06:59 06:59 Intake Total Output Total Balance Weight General appearance: PRESENT: mild distress - To moderate, other - Confused but not agitated Head exam: PRESENT: normocephalic Eye exam: PRESENT: conjunctiva pale Mouth exam: PRESENT: moist, neck supple Neck exam: ABSENT: JVD Respiratory exam: PRESENT: rhonchi - Bilateral. ABSENT: wheezes Cardiovascular exam: PRESENT: RRR. ABSENT: gallop GI/Abdominal exam: PRESENT: soft, tenderness - Noted periumbilically mainly on the upper portion above the umbilicus. ABSENT: distended Extremities exam: PRESENT: other - Trace edema Neurological exam: PRESENT: altered Skin exam: PRESENT: dry, warm. ABSENT: cyanosis Results Laboratory Results: 09/20/16 04:37 09/20/16 04:37 09/20/16 09/20/16 09/20/16 04:37 04:37 04:37 WBC 8.4 RBC 2.88 L Hgb 12.2 L D Hct 34.5 L MCV 120 H MCH 42.5 H MCHC 35.5 RDW 13.9 Plt Count 80 L Carbonic Acid HCO3/H2CO3 Ratio ABG pH ABG pCO2 ABG pO2 ABG HCO3 ABG O2 Saturation ABG Base Excess FiO2 Sodium 142.9 Potassium 3.7 Chloride 110 H Carbon Dioxide 26 Anion Gap 7 BUN 13 Creatinine 0.44 L Est GFR ( Amer) > 60 Est GFR (Non-Af Amer) > 60 Glucose 92 Calcium 8.2 L Ammonia 59.7 H 09/20/16 08:13 WBC RBC Hgb Hct MCV MCH MCHC RDW Plt Count Carbonic Acid 1.41 H HCO3/H2CO3 Ratio 18:1 ABG pH 7.36 ABG pCO2 46.8 H ABG pO2 84.5 ABG HCO3 26.0 ABG O2 Saturation 96.0 ABG Base Excess 0.1 FiO2 3L Sodium Potassium Chloride Carbon Dioxide Anion Gap BUN Creatinine Est GFR ( Amer) Est GFR (Non-Af Amer) Glucose Calcium Ammonia Impressions: Abdomen/Pelvis CT 09/17/16 18:03 IMPRESSION: 1. MARKEDLY HETEROGENOUS DIFFUSE LOW-ATTENUATION THROUGHOUT THE LIVER, MOST LIKELY DUE TO CIRRHOSIS. 2. ASCITES. 3. AVASCULAR NECROSIS OF THE RIGHT AND LEFT FEMORAL HEAD, SIMILAR APPEARANCE COMPARED TO THE PRIOR STUDY. 4. SURGICAL CHANGES WITH RIGHT HEMICOLECTOMY. Paracentesis Ultrasound 09/18/16 02:59 IMPRESSION: Successful ultrasound-guided therapeutic and diagnostic paracentesis Chest X-Ray 09/19/16 00:00 IMPRESSION: SUSPECT DEVELOPING INFILTRATE IN THE LEFT LUNG. Assessment & Plan - Diagnosis (1) Hepatic encephalopathy Is this a current diagnosis for this admission?: Yes (2) Alcohol intoxication Qualifiers: Complication of substance-induced condition: uncomplicated Qualified Code(s): F10.120 - Alcohol abuse with intoxication, uncomplicated Is this a current diagnosis for this admission?: Yes (3) Ascites Qualifiers: Ascites type: due to alcoholic cirrhosis Qualified Code(s): K70.31 - Alcoholic cirrhosis of liver with ascites Is this a current diagnosis for this admission?: Yes (4) UTI (urinary tract infection) Qualifiers: Urinary tract infection type: site unspecified Is this a current diagnosis for this admission?: Yes (5) Liver cirrhosis, alcoholic Qualifiers: Ascites presence: with ascites Qualified Code(s): K70.31 - Alcoholic cirrhosis of liver with ascites Is this a current diagnosis for this admission?: Yes (6) Hypokalemia Is this a current diagnosis for this admission?: Yes (7) Hypomagnesemia Is this a current diagnosis for this admission?: Yes (8) COPD (chronic obstructive pulmonary disease) Qualifiers: COPD type: unspecified COPD Qualified Code(s): J44.9 - Chronic obstructive pulmonary disease, unspecified Is this a current diagnosis for this admission?: Yes (9) Hypertension Qualifiers: Hypertension type: essential hypertension Qualified Code(s): I10 - Essential (primary) hypertension Is this a current diagnosis for this admission?: Yes (10) GERD (gastroesophageal reflux disease) Qualifiers: Esophagitis presence: without esophagitis Qualified Code(s): K21.9 - Gastro-esophageal reflux disease without esophagitis Is this a current diagnosis for this admission?: Yes (11) Avascular necrosis of bones of both hips Is this a current diagnosis for this admission?: Yes (12) History of DVT (deep vein thrombosis) Is this a current diagnosis for this admission?: Yes - Time Time Spent with patient: 25-34 minutes - Plan Summary Plan Summary: I would place the Patient on BiPAP. Patient's respiration seems to be unchanged. We will obtain CT scan of the brain, patient was on chronic anticoagulation for his deep venous thrombosis. Change antibiotic to Zosyn. Follow culture of the peritoneal fluid. Follow ammonia level.
[2016-09-20] MEDS: HEPARIN SOD (PORCINE) 5,000 UNIT/ML 1 ML SYRINGE SUBCUT SCH ×2 (10:03→21:49)
[2016-09-20] MEDS: LACTULOSE SYRUP 20 GM/30 ML UDCUP PR SCH ×2 (10:42→23:41)
[2016-09-20] MEDS: PIPERACILLIN SODIUM/TAZOBACTAM 3.375 GM in NORMAL SALINE 100 ML IV SCH ×2 (13:13→21:54)
[2016-09-20] MEDS ORDERED: ENALAPRILAT DIHYDRATE INJ/PF 1.25 MG/1 ML SDV IV PRN (21:21)
[2016-09-20] MEDS ORDERED: POTASSI CL 20 MEQ/D5NS 1L 20 MEQ/1,000 ML RTUINJ IV PRN (21:57)
[2016-09-21 04:40] LABS: ANION GAP 9 (5-19); BLOOD UREA NITROGEN 13 mg/dL (7-20); CALCIUM 8.7 mg/dL (8.4-10.2); CARBON DIOXIDE 27 mmol/L (22-30); CHLORIDE 113 mmol/L (98-107); CREATININE RESULT 0.42 mg/dL (0.52-1.25); GLUCOSE 111 mg/dL (75-110); SODIUM 149.3 mmol/L (137-145)
[2016-09-21 04:46] LABS: POTASSIUM 3.9 mmol/L (3.6-5.0)
[2016-09-21] MEDS: METRONIDAZOLE 500 MG/NS RTU 100 ML IV SCH ×4 (06:13→23:31)
[2016-09-21] MEDS: PIPERACILLIN SODIUM/TAZOBACTAM 3.375 GM in NORMAL SALINE 100 ML IV SCH ×3 (07:24→21:45)
[2016-09-21] MEDS ORDERED: ALBUTEROL SULFATE 0.042% NEB (1.25 MG/3 ML) AMPUL NEB PRN (08:13)
[2016-09-21] MEDS ORDERED: METHYLPREDNISOLONE INJ 125 MG/2 ML SDV IV ONE (09:00)
--- NOTE | 2016-09-21 09:38 | PDOC PROGRESS REPORT ---
Subjective Progress Note for:: 09/21/16 Subjective:: Patient remains encephalopathic. On BiPAP. After long conversation with family yesterday they decided to make the patient DO NOT RESUSCITATE. Patient receiving lactulose enema and having bowel movements. No reported temperature spikes, nausea or vomiting. No worsening respiratory condition. Physical Exam Vital Signs: Temp Pulse Resp BP Pulse Ox 99.1 F 107 H 22 H 146/77 H 97 09/21/16 04:08 09/21/16 07:00 09/21/16 07:58 09/21/16 04:08 09/21/16 04:08 Intake & Output 09/20/16 09/21/16 09/22/16 06:59 06:59 06:59 Intake Total 1997 Output Total 925 Balance 1072 Weight 81.3 kg General appearance: PRESENT: no acute distress, other - On BiPAP Head exam: PRESENT: normocephalic Eye exam: PRESENT: conjunctiva pale, EOMI Mouth exam: PRESENT: moist, neck supple Respiratory exam: PRESENT: rhonchi - Bilateral, wheezes - Bilateral Cardiovascular exam: PRESENT: RRR. ABSENT: gallop GI/Abdominal exam: PRESENT: hyperactive bowel sounds, soft, tenderness - Periumbilical mild Extremities exam: ABSENT: pedal edema Neurological exam: PRESENT: altered - Would open eyes and stare but falls back to sleep. Skin exam: PRESENT: dry, warm. ABSENT: cyanosis Results Laboratory Results: 09/20/16 04:37 09/21/16 04:08 09/21/16 09/21/16 09/21/16 04:08 04:08 04:08 Sodium 149.3 H Potassium 3.9 Chloride 113 H Carbon Dioxide 27 Anion Gap 9 BUN 13 Creatinine 0.42 L Est GFR ( Amer) > 60 Est GFR (Non-Af Amer) > 60 Glucose 111 H Calcium 8.7 Ammonia 60.6 H TSH 1.87 Impressions: Abdomen/Pelvis CT 09/17/16 18:03 IMPRESSION: 1. MARKEDLY HETEROGENOUS DIFFUSE LOW-ATTENUATION THROUGHOUT THE LIVER, MOST LIKELY DUE TO CIRRHOSIS. 2. ASCITES. 3. AVASCULAR NECROSIS OF THE RIGHT AND LEFT FEMORAL HEAD, SIMILAR APPEARANCE COMPARED TO THE PRIOR STUDY. 4. SURGICAL CHANGES WITH RIGHT HEMICOLECTOMY. Paracentesis Ultrasound 09/18/16 02:59 IMPRESSION: Successful ultrasound-guided therapeutic and diagnostic paracentesis Chest X-Ray 09/19/16 00:00 IMPRESSION: SUSPECT DEVELOPING INFILTRATE IN THE LEFT LUNG. Head CT 09/20/16 00:00 IMPRESSION: No acute intracranial abnormality. Chronic changes. Assessment & Plan - Diagnosis (1) Hepatic encephalopathy Is this a current diagnosis for this admission?: Yes (2) Alcohol intoxication Qualifiers: Complication of substance-induced condition: uncomplicated Qualified Code(s): F10.120 - Alcohol abuse with intoxication, uncomplicated Is this a current diagnosis for this admission?: Yes (3) Ascites Qualifiers: Ascites type: due to alcoholic cirrhosis Qualified Code(s): K70.31 - Alcoholic cirrhosis of liver with ascites Is this a current diagnosis for this admission?: Yes (4) UTI (urinary tract infection) Qualifiers: Urinary tract infection type: site unspecified Is this a current diagnosis for this admission?: Yes (5) Liver cirrhosis, alcoholic Qualifiers: Ascites presence: with ascites Qualified Code(s): K70.31 - Alcoholic cirrhosis of liver with ascites Is this a current diagnosis for this admission?: Yes (6) Hypokalemia Is this a current diagnosis for this admission?: Yes (7) Hypomagnesemia Is this a current diagnosis for this admission?: Yes (8) COPD (chronic obstructive pulmonary disease) Qualifiers: COPD type: unspecified COPD Qualified Code(s): J44.9 - Chronic obstructive pulmonary disease, unspecified Is this a current diagnosis for this admission?: Yes (9) Hypertension Qualifiers: Hypertension type: essential hypertension Qualified Code(s): I10 - Essential (primary) hypertension Is this a current diagnosis for this admission?: Yes (10) GERD (gastroesophageal reflux disease) Qualifiers: Esophagitis presence: without esophagitis Qualified Code(s): K21.9 - Gastro-esophageal reflux disease without esophagitis Is this a current diagnosis for this admission?: Yes (11) Avascular necrosis of bones of both hips Is this a current diagnosis for this admission?: Yes (12) History of DVT (deep vein thrombosis) Is this a current diagnosis for this admission?: Yes - Time Time Spent with patient: 25-34 minutes - Plan Summary Plan Summary: Continue current antibiotics. We will add neomycin and continue lactulose. Insert nasogastric tube. Begin treatment for COPD as well with steroids and nebulizers. Continue supportive care, if mental status does not improve in the next 24 hours consider alternate means of nutrition. Follow pericardial fluid cytology. So far cultures were negative.
[2016-09-21] MEDS ORDERED: NEOMYCIN SULFATE 500 MG TABLET NG SCH (10:00)
[2016-09-21] MEDS: LORAZEPAM INJ 2 MG/1 ML VIAL IV PRN ×2 (10:45→23:55)
[2016-09-21] MEDS: HEPARIN SOD (PORCINE) 5,000 UNIT/ML 1 ML SYRINGE SUBCUT SCH ×2 (11:04→20:16)
[2016-09-21] MEDS: LACTULOSE SYRUP 20 GM/30 ML UDCUP NG SCH ×3 (12:39→23:31)
[2016-09-21] MEDS: DEXTROSE 5%-1/2 NORMAL SALINE 1,000 ML IV PRN (13:20)
[2016-09-21] MEDS: IPRATROPIUM/ALBUTEROL 0.5-2.5 MG/3 ML AMPUL NEB SCH ×2 (13:44→19:46)
[2016-09-21] MEDS: NEOMYCIN SULFATE 500 MG TABLET NG SCH ×3 (15:00→23:31)
[2016-09-21] MEDS: METHYLPREDNISOLONE INJ 125 MG/2 ML SDV IV SCH (17:29)
[2016-09-22] MEDS: METHYLPREDNISOLONE INJ 125 MG/2 ML SDV IV SCH ×3 (02:24→17:32)
[2016-09-22] MEDS: IPRATROPIUM/ALBUTEROL 0.5-2.5 MG/3 ML AMPUL NEB SCH ×4 (02:36→20:08)
[2016-09-22 04:43] LABS: ANION GAP 10 (5-19); BLOOD UREA NITROGEN 15 mg/dL (7-20); CALCIUM 8.8 mg/dL (8.4-10.2); CARBON DIOXIDE 28 mmol/L (22-30); CHLORIDE 114 mmol/L (98-107); CREATININE RESULT 0.35 mg/dL (0.52-1.25); GLUCOSE 156 mg/dL (75-110); POTASSIUM 3.5 mmol/L (3.6-5.0); SODIUM 151.5 mmol/L (137-145)
[2016-09-22] MEDS: PIPERACILLIN SODIUM/TAZOBACTAM 3.375 GM in NORMAL SALINE 100 ML IV SCH ×3 (05:15→22:18)
[2016-09-22] MEDS: METRONIDAZOLE 500 MG/NS RTU 100 ML IV SCH ×3 (05:15→17:32)
[2016-09-22] MEDS: LACTULOSE SYRUP 20 GM/30 ML UDCUP NG SCH ×3 (05:15→17:31)
[2016-09-22] MEDS: LORAZEPAM INJ 2 MG/1 ML VIAL IV PRN ×3 (05:27→18:49)
[2016-09-22] MEDS: HALOPERIDOL LACTATE INJ 5 MG/1 ML VIAL IV PRN ×2 (09:18→14:49)
[2016-09-22] MEDS: NEOMYCIN SULFATE 500 MG TABLET NG SCH ×4 (09:19→22:21)
[2016-09-22] MEDS: HEPARIN SOD (PORCINE) 5,000 UNIT/ML 1 ML SYRINGE SUBCUT SCH ×2 (10:51→20:28)
[2016-09-22] MEDS: DEXTROSE 5%-1/2 NORMAL SALINE 1,000 ML IV PRN (17:35)
--- NOTE | 2016-09-22 18:09 | PDOC PROGRESS REPORT ---
Subjective Progress Note for:: 09/22/16 Subjective:: Patient is confused Physical Exam Vital Signs: Temp Pulse Resp BP Pulse Ox 97.5 F 131 H 22 H 175/98 H 92 09/22/16 16:12 09/22/16 16:12 09/22/16 16:12 09/22/16 16:12 09/22/16 16:12 Intake & Output 09/21/16 09/22/16 09/23/16 06:59 06:59 06:59 Intake Total 1996 1616 Output Total 925 1125 200 Balance 1072 491 -200 Weight 81.3 kg 79.1 kg General appearance: PRESENT: no acute distress, disheveled. ABSENT: cooperative Eye exam: PRESENT: conjunctiva pink. ABSENT: scleral icterus Mouth exam: PRESENT: moist, tongue midline Neck exam: ABSENT: JVD Respiratory exam: PRESENT: rhonchi - Coarse rhonchi bilaterally.. ABSENT: rales , wheezes Cardiovascular exam: PRESENT: RRR. ABSENT: diastolic murmur, rubs, systolic murmur GI/Abdominal exam: PRESENT: normal bowel sounds, soft. ABSENT: distended, guarding, mass, organolmegaly, rebound, tenderness Extremities exam: ABSENT: calf tenderness, clubbing, pedal edema Neurological exam: PRESENT: altered. ABSENT: alert Psychiatric exam: PRESENT: agitated Skin exam: PRESENT: dry, intact, warm. ABSENT: cyanosis, rash Results Laboratory Results: 09/20/16 04:37 09/22/16 04:16 09/22/16 09/22/16 04:16 04:16 Sodium 151.5 H Potassium 3.5 L Chloride 114 H Carbon Dioxide 28 Anion Gap 10 BUN 15 Creatinine 0.35 L Est GFR ( Amer) > 60 Est GFR (Non-Af Amer) > 60 Glucose 156 H Calcium 8.8 Ammonia 42.6 H 09/18/16 14:05 Ascities Fluid Gram Stain - Final 09/18/16 14:05 Ascities Fluid Body Fluid Culture - Final NO AEROBIC OR ANAEROBIC ORGANISMS RECOVERED Impressions: Abdomen/Pelvis CT 09/17/16 18:03 IMPRESSION: 1. MARKEDLY HETEROGENOUS DIFFUSE LOW-ATTENUATION THROUGHOUT THE LIVER, MOST LIKELY DUE TO CIRRHOSIS. 2. ASCITES. 3. AVASCULAR NECROSIS OF THE RIGHT AND LEFT FEMORAL HEAD, SIMILAR APPEARANCE COMPARED TO THE PRIOR STUDY. 4. SURGICAL CHANGES WITH RIGHT HEMICOLECTOMY. Paracentesis Ultrasound 09/18/16 02:59 IMPRESSION: Successful ultrasound-guided therapeutic and diagnostic paracentesis Chest X-Ray 09/19/16 00:00 IMPRESSION: SUSPECT DEVELOPING INFILTRATE IN THE LEFT LUNG. Head CT 09/20/16 00:00 IMPRESSION: No acute intracranial abnormality. Chronic changes. KUB X-Ray 09/21/16 08:09 IMPRESSION: NG tube is in place. Gas pattern is nonspecific. Assessment & Plan - Diagnosis (1) Hepatic encephalopathy Is this a current diagnosis for this admission?: YesPlan: The patient is still confused. We will continue with the lactulose. Patient also is on Flagyl. (2) UTI (urinary tract infection) Qualifiers: Urinary tract infection type: site unspecified Is this a current diagnosis for this admission?: YesPlan: Continue with Zosyn. (3) Liver cirrhosis, alcoholic Qualifiers: Ascites presence: with ascites Qualified Code(s): K70.31 - Alcoholic cirrhosis of liver with ascites Is this a current diagnosis for this admission?: YesPlan: Continue lactulose as well as neomycin and Flagyl. (4) Hypokalemia Is this a current diagnosis for this admission?: YesPlan: We'll continue to replete and monitor as needed (5) Hypomagnesemia Is this a current diagnosis for this admission?: YesPlan: We'll give IV magnesium as needed. (6) COPD (chronic obstructive pulmonary disease) Qualifiers: COPD type: unspecified COPD Qualified Code(s): J44.9 - Chronic obstructive pulmonary disease, unspecified Is this a current diagnosis for this admission?: YesPlan: Continue with IV steroids. Also will give nebulizers as needed. (7) DVT (deep venous thrombosis) Is this a current diagnosis for this admission?: YesPlan: Patient was on Xarelto previously. He is currently getting subcutaneous heparin. Given his hemoglobin has dropped significantly since admission we will continue the heparin and lower dose for now and see if his hemoglobin continues to drop. (8) Hypertension Qualifiers: Hypertension type: essential hypertension Qualified Code(s): I10 - Essential (primary) hypertension Is this a current diagnosis for this admission?: YesPlan: We will start him on propanolol given his cirrhosis and elevated blood pressure and tachycardia. (9) GERD (gastroesophageal reflux disease) Qualifiers: Esophagitis presence: without esophagitis Qualified Code(s): K21.9 - Gastro-esophageal reflux disease without esophagitis Is this a current diagnosis for this admission?: Yes (10) ETOH abuse Is this a current diagnosis for this admission?: YesPlan: Patient does have a component of delirium tremens and is getting Ativan as well as Haldol when necessary. - Time Time Spent with patient: 25-34 minutes - Inpatient Certification Medical Necessity: Need Close Monitoring Due to Risk of Patient Decompensation
[2016-09-22] MEDS: PROPRANOLOL HCL 10 MG TABLET PO SCH (22:21)
[2016-09-23] MEDS: METRONIDAZOLE 500 MG/NS RTU 100 ML IV SCH ×4 (00:30→19:50)
[2016-09-23] MEDS: LACTULOSE SYRUP 20 GM/30 ML UDCUP NG SCH ×4 (00:30→19:50)
[2016-09-23] MEDS: IPRATROPIUM/ALBUTEROL 0.5-2.5 MG/3 ML AMPUL NEB SCH ×4 (02:27→20:06)
[2016-09-23] MEDS: METHYLPREDNISOLONE INJ 125 MG/2 ML SDV IV SCH ×3 (02:59→19:49)
[2016-09-23] MEDS: LORAZEPAM INJ 2 MG/1 ML VIAL IV PRN (04:55)
[2016-09-23 04:59] LABS: HEMATOCRIT 36.8 % (37.9-51.0); HGB HCT DIFFERENCE 2.2; MEAN CORPUSCULAR HEMOGLOBIN 41.2 pg (27.0-33.4); MEAN CORPUSCULAR HGB CONC 35.2 g/dL (32.0-36.0); MEAN CORPUSCULAR VOLUME 117 fl (80-97); RED BLOOD COUNT 3.15 10^6/uL (4.35-5.55); RED CELL DISTRIBUTION WIDTH 13.9 % (11.5-14.0); WHITE BLOOD COUNT 8.4 10^3/uL (4.0-10.5)
[2016-09-23] MEDS: PROPRANOLOL HCL 10 MG TABLET PO SCH ×3 (05:04→22:18)
[2016-09-23] MEDS: DEXTROSE 5%-1/2 NORMAL SALINE 1,000 ML IV PRN ×3 (05:10→17:14)
[2016-09-23 05:22] LABS: ALANINE AMINOTRANSFERASE 46 U/L (21-72); ALBUMIN 2.9 g/dL (3.5-5.0); ALKALINE PHOSPHATASE 129 U/L (38-126); ANION GAP 11 (5-19); ASPARTATE AMINO TRANSFERASE 76 U/L (17-59); BILIRUBIN,TOTAL 5.9 mg/dL (0.2-1.3); BLOOD UREA NITROGEN 17 mg/dL (7-20); CALCIUM 8.7 mg/dL (8.4-10.2); CARBON DIOXIDE 36 mmol/L (22-30); CHLORIDE 106 mmol/L (98-107); CREATININE RESULT 0.42 mg/dL (0.52-1.25); GLUCOSE 159 mg/dL (75-110); POTASSIUM 3.1 mmol/L (3.6-5.0); TOTAL PROTEIN 6.4 g/dL (6.3-8.2)
[2016-09-23 05:28] LABS: BAND NEUTROPHILS % (MANUAL) 1 % (3-5); BASOPHILS % (MANUAL) 0 % (0-2); EOSINOPHILS % (MANUAL) 0 % (0-6); LYMPHOCYTES % (MANUAL) 6 % (13-45); TOTAL CELLS COUNTED 100
[2016-09-23 05:30] LABS: POIKILOCYTOSIS 2+; STOMATOCYTES SLIGHT; TARGET CELLS 2+; TOXIC VACUOLATION PRESENT
[2016-09-23] MEDS: PIPERACILLIN SODIUM/TAZOBACTAM 3.375 GM in NORMAL SALINE 100 ML IV SCH ×3 (05:54→22:23)
[2016-09-23] MEDS: NEOMYCIN SULFATE 500 MG TABLET NG SCH ×4 (10:19→22:17)
[2016-09-23] MEDS: HEPARIN SOD (PORCINE) 5,000 UNIT/ML 1 ML SYRINGE SUBCUT SCH ×2 (10:28→22:26)
[2016-09-23] MEDS: POTASSI CL 20 MEQ/50 ML RIDER 20 MEQ/50 ML RTUPB IV SCH ×2 (10:31→12:48)
--- NOTE | 2016-09-23 11:58 | PDOC PROGRESS REPORT ---
Subjective Progress Note for:: 09/23/16 Subjective:: Patient is confused Physical Exam Vital Signs: Temp Pulse Resp BP Pulse Ox 98.4 F 98 18 148/88 H 98 09/23/16 07:20 09/23/16 07:52 09/23/16 07:52 09/23/16 07:20 09/23/16 07:52 Intake & Output 09/22/16 09/23/16 09/24/16 06:59 06:59 06:59 Intake Total 1616 1505 Output Total 1125 1500 Balance 491 5 Weight 79.1 kg 78.2 kg General appearance: PRESENT: no acute distress Eye exam: PRESENT: conjunctiva pink. ABSENT: scleral icterus Mouth exam: PRESENT: moist, tongue midline Neck exam: ABSENT: JVD Respiratory exam: PRESENT: clear to auscultation kathy. ABSENT: rales, rhonchi, wheezes Cardiovascular exam: PRESENT: tachycardia. ABSENT: diastolic murmur, rubs, systolic murmur GI/Abdominal exam: PRESENT: normal bowel sounds, organolmegaly - Liver edges palpable, soft. ABSENT: distended, guarding, mass, rebound, tenderness Extremities exam: ABSENT: calf tenderness, clubbing, pedal edema Neurological exam: PRESENT: altered. ABSENT: oriented to person, oriented to place, oriented to time, oriented to situation Psychiatric exam: PRESENT: agitated Results Laboratory Results: 09/23/16 04:29 09/23/16 04:29 09/23/16 09/23/16 04:29 04:29 WBC 8.4 RBC 3.15 L Hgb 13.0 L Hct 36.8 L MCV 117 H MCH 41.2 H MCHC 35.2 RDW 13.9 Plt Count 143 L Seg Neutrophils % Not Reportable Lymphocytes % Not Reportable Monocytes % Not Reportable Eosinophils % Not Reportable Basophils % Not Reportable Absolute Neutrophils Not Reportable Absolute Lymphocytes Not Reportable Absolute Monocytes Not Reportable Absolute Eosinophils Not Reportable Absolute Basophils Not Reportable Sodium 153.0 H Potassium 3.1 L Chloride 106 Carbon Dioxide 36 H Anion Gap 11 BUN 17 Creatinine 0.42 L Est GFR ( Amer) > 60 Est GFR (Non-Af Amer) > 60 Glucose 159 H Calcium 8.7 Total Bilirubin 5.9 H AST 76 H ALT 46 Alkaline Phosphatase 129 H Total Protein 6.4 Albumin 2.9 L 09/18/16 14:05 Ascities Fluid Gram Stain - Final 09/18/16 14:05 Ascities Fluid Body Fluid Culture - Final NO AEROBIC OR ANAEROBIC ORGANISMS RECOVERED Impressions: Abdomen/Pelvis CT 09/17/16 18:03 IMPRESSION: 1. MARKEDLY HETEROGENOUS DIFFUSE LOW-ATTENUATION THROUGHOUT THE LIVER, MOST LIKELY DUE TO CIRRHOSIS. 2. ASCITES. 3. AVASCULAR NECROSIS OF THE RIGHT AND LEFT FEMORAL HEAD, SIMILAR APPEARANCE COMPARED TO THE PRIOR STUDY. 4. SURGICAL CHANGES WITH RIGHT HEMICOLECTOMY. Paracentesis Ultrasound 09/18/16 02:59 IMPRESSION: Successful ultrasound-guided therapeutic and diagnostic paracentesis Chest X-Ray 09/19/16 00:00 IMPRESSION: SUSPECT DEVELOPING INFILTRATE IN THE LEFT LUNG. Head CT 09/20/16 00:00 IMPRESSION: No acute intracranial abnormality. Chronic changes. KUB X-Ray 09/21/16 08:09 IMPRESSION: NG tube is in place. Gas pattern is nonspecific. Assessment & Plan - Diagnosis (1) Hepatic encephalopathy Is this a current diagnosis for this admission?: YesPlan: The patient is still confused. We will continue with the lactulose. Patient also is on Flagyl. (2) UTI (urinary tract infection) Qualifiers: Urinary tract infection type: site unspecified Is this a current diagnosis for this admission?: YesPlan: Continue with Zosyn. (3) Liver cirrhosis, alcoholic Qualifiers: Ascites presence: with ascites Qualified Code(s): K70.31 - Alcoholic cirrhosis of liver with ascites Is this a current diagnosis for this admission?: YesPlan: Continue lactulose as well as neomycin and Flagyl. (4) Hypokalemia Is this a current diagnosis for this admission?: YesPlan: We'll continue to replete and monitor as needed (5) Hypomagnesemia Is this a current diagnosis for this admission?: YesPlan: We'll give IV magnesium as needed. (6) COPD (chronic obstructive pulmonary disease) Qualifiers: COPD type: unspecified COPD Qualified Code(s): J44.9 - Chronic obstructive pulmonary disease, unspecified Is this a current diagnosis for this admission?: YesPlan: Continue with IV steroids. Also will give nebulizers as needed. (7) DVT (deep venous thrombosis) Is this a current diagnosis for this admission?: YesPlan: Patient was on Xarelto previously. He is currently getting subcutaneous heparin. Given his hemoglobin has dropped significantly since admission we will continue the heparin at the lower dose for now and see if his hemoglobin continues to drop. (8) Hypertension Qualifiers: Hypertension type: essential hypertension Qualified Code(s): I10 - Essential (primary) hypertension Is this a current diagnosis for this admission?: YesPlan: We will continue on propanolol given his cirrhosis and elevated blood pressure and tachycardia. (9) GERD (gastroesophageal reflux disease) Qualifiers: Esophagitis presence: without esophagitis Qualified Code(s): K21.9 - Gastro-esophageal reflux disease without esophagitis Is this a current diagnosis for this admission?: Yes (10) ETOH abuse Is this a current diagnosis for this admission?: YesPlan: Patient does have a component of delirium tremens and is getting Ativan as well as Haldol when necessary. (11) Hypernatremia Is this a current diagnosis for this admission?: YesPlan: We'll give additional free water today. - Time Time Spent with patient: 25-34 minutes - Inpatient Certification Medical Necessity: Need Close Monitoring Due to Risk of Patient Decompensation
[2016-09-24] MEDS: METRONIDAZOLE 500 MG/NS RTU 100 ML IV SCH ×3 (00:44→12:48)
[2016-09-24] MEDS: LORAZEPAM INJ 2 MG/1 ML VIAL IV PRN (00:44)
[2016-09-24] MEDS: LACTULOSE SYRUP 20 GM/30 ML UDCUP NG SCH ×4 (00:44→18:13)
[2016-09-24] MEDS: IPRATROPIUM/ALBUTEROL 0.5-2.5 MG/3 ML AMPUL NEB SCH ×4 (02:21→20:04)
[2016-09-24] MEDS: METHYLPREDNISOLONE INJ 125 MG/2 ML SDV IV SCH ×3 (03:56→18:13)
[2016-09-24] MEDS: DEXTROSE 5%-1/2 NORMAL SALINE 1,000 ML IV PRN (04:30)
[2016-09-24 05:34] LABS: ALANINE AMINOTRANSFERASE 51 U/L (21-72); ALBUMIN 2.5 g/dL (3.5-5.0); ALKALINE PHOSPHATASE 111 U/L (38-126); ANION GAP 7 (5-19); ASPARTATE AMINO TRANSFERASE 86 U/L (17-59); BILIRUBIN,DIRECT 1.4 mg/dL (0.0-0.3); BILIRUBIN,TOTAL 5.9 mg/dL (0.2-1.3); BLOOD UREA NITROGEN 21 mg/dL (7-20); CALCIUM 8.1 mg/dL (8.4-10.2); CARBON DIOXIDE 36 mmol/L (22-30); CHLORIDE 104 mmol/L (98-107); CREATININE RESULT 0.48 mg/dL (0.52-1.25); GLUCOSE 183 mg/dL (75-110); MAGNESIUM 1.5 mg/dL (1.6-2.3); POTASSIUM 3.2 mmol/L (3.6-5.0); SODIUM 146.5 mmol/L (137-145); TOTAL PROTEIN 5.7 g/dL (6.3-8.2)
[2016-09-24 05:48] LABS: ABSOLUTE BASOPHILS # (AUTO) 0.1 10^3/uL (0.0-0.2); ABSOLUTE LYMPHOCYTES (AUTO) 0.4 10^3/uL (0.5-4.7); ABSOLUTE MONOCYTES (AUTO) 0.7 10^3/uL (0.1-1.4); BASOPHILS % (AUTO) 0.8 % (0-2); HEMATOCRIT 35.9 % (37.9-51.0); HEMOGLOBIN 12.7 g/dL (13.5-17.0); HGB HCT DIFFERENCE 2.2; LYMPHOCYTES % (AUTO) 5.1 % (13-45); MEAN CORPUSCULAR HEMOGLOBIN 41.6 pg (27.0-33.4); MEAN CORPUSCULAR HGB CONC 35.4 g/dL (32.0-36.0); MEAN CORPUSCULAR VOLUME 118 fl (80-97); MONOCYTES % (AUTO) 9.4 % (3-13); RED BLOOD COUNT 3.05 10^6/uL (4.35-5.55); RED CELL DISTRIBUTION WIDTH 13.6 % (11.5-14.0); SEGMENTED NEUTROPHILS % (AUTO) 84.7 % (42-78); WHITE BLOOD COUNT 7.1 10^3/uL (4.0-10.5)
[2016-09-24 06:11] LABS: OVALOCYTES SLIGHT; POIKILOCYTOSIS SLIGHT; TARGET CELLS SLIGHT; TOXIC VACUOLATION PRESENT
[2016-09-24] MEDS: PROPRANOLOL HCL 10 MG TABLET PO SCH ×3 (06:47→22:14)
[2016-09-24] MEDS: PIPERACILLIN SODIUM/TAZOBACTAM 3.375 GM in NORMAL SALINE 100 ML IV SCH ×2 (06:51→14:08)
[2016-09-24] MEDS: POTASSI CL 20 MEQ/50 ML RIDER 50 ML IV SCH ×2 (08:50→10:52)
[2016-09-24] MEDS: MAGNESIUM SULFATE/D5W 100 ML IV SCH ×2 (08:52→10:51)
[2016-09-24] MEDS: NEOMYCIN SULFATE 500 MG TABLET NG SCH ×4 (10:54→22:46)
--- NOTE | 2016-09-24 11:13 | PDOC PROGRESS REPORT ---
Subjective Progress Note for:: 09/24/16 Subjective:: Patient is confused Physical Exam Vital Signs: Temp Pulse Resp BP Pulse Ox 97.7 F 65 17 159/72 H 97 09/24/16 07:52 09/24/16 08:18 09/24/16 08:18 09/24/16 07:52 09/24/16 08:18 Intake & Output 09/23/16 09/24/16 09/25/16 06:59 06:59 06:59 Intake Total 1505 1702 Output Total 1500 2400 Balance 5 -698 Weight 78.2 kg 78.2 kg General appearance: PRESENT: mild distress Eye exam: PRESENT: conjunctiva pink, scleral icterus Mouth exam: PRESENT: moist, tongue midline Neck exam: ABSENT: JVD Respiratory exam: PRESENT: rhonchi - Coarse rhonchi bilaterally. Cardiovascular exam: PRESENT: tachycardia. ABSENT: diastolic murmur, rubs, systolic murmur GI/Abdominal exam: PRESENT: normal bowel sounds, soft. ABSENT: distended, guarding, mass, organolmegaly, rebound, tenderness Extremities exam: ABSENT: calf tenderness, clubbing, pedal edema Neurological exam: PRESENT: altered Psychiatric exam: PRESENT: flat affect Skin exam: PRESENT: dry, intact, warm. ABSENT: cyanosis, rash Results Laboratory Results: 09/24/16 04:14 09/24/16 04:14 09/24/16 09/24/16 04:14 04:14 WBC 7.1 RBC 3.05 L Hgb 12.7 L Hct 35.9 L MCV 118 H MCH 41.6 H MCHC 35.4 RDW 13.6 Plt Count 135 L Seg Neutrophils % 84.7 H Lymphocytes % 5.1 L Monocytes % 9.4 Eosinophils % 0.0 Basophils % 0.8 Absolute Neutrophils 6.0 Absolute Lymphocytes 0.4 L Absolute Monocytes 0.7 Absolute Eosinophils 0.0 Absolute Basophils 0.1 Sodium 146.5 H Potassium 3.2 L Chloride 104 Carbon Dioxide 36 H Anion Gap 7 BUN 21 H Creatinine 0.48 L Est GFR ( Amer) > 60 Est GFR (Non-Af Amer) > 60 Glucose 183 H Calcium 8.1 L Magnesium 1.5 L Total Bilirubin 5.9 H AST 86 H ALT 51 Alkaline Phosphatase 111 Total Protein 5.7 L Albumin 2.5 L Impressions: Abdomen/Pelvis CT 09/17/16 18:03 IMPRESSION: 1. MARKEDLY HETEROGENOUS DIFFUSE LOW-ATTENUATION THROUGHOUT THE LIVER, MOST LIKELY DUE TO CIRRHOSIS. 2. ASCITES. 3. AVASCULAR NECROSIS OF THE RIGHT AND LEFT FEMORAL HEAD, SIMILAR APPEARANCE COMPARED TO THE PRIOR STUDY. 4. SURGICAL CHANGES WITH RIGHT HEMICOLECTOMY. Paracentesis Ultrasound 09/18/16 02:59 IMPRESSION: Successful ultrasound-guided therapeutic and diagnostic paracentesis Chest X-Ray 09/19/16 00:00 IMPRESSION: SUSPECT DEVELOPING INFILTRATE IN THE LEFT LUNG. Head CT 09/20/16 00:00 IMPRESSION: No acute intracranial abnormality. Chronic changes. KUB X-Ray 09/21/16 08:09 IMPRESSION: NG tube is in place. Gas pattern is nonspecific. Assessment & Plan - Diagnosis (1) Hepatic encephalopathy Is this a current diagnosis for this admission?: YesPlan: The patient is still confused. We will continue with the lactulose. Patient also is on Flagyl. (2) UTI (urinary tract infection) Qualifiers: Urinary tract infection type: site unspecified Is this a current diagnosis for this admission?: YesPlan: Continue with Zosyn. (3) Liver cirrhosis, alcoholic Qualifiers: Ascites presence: with ascites Qualified Code(s): K70.31 - Alcoholic cirrhosis of liver with ascites Is this a current diagnosis for this admission?: YesPlan: Continue lactulose as well as neomycin and Flagyl. (4) Hypokalemia Is this a current diagnosis for this admission?: YesPlan: We'll continue to replete and monitor as needed (5) Hypomagnesemia Is this a current diagnosis for this admission?: YesPlan: We'll give IV magnesium as needed. (6) COPD (chronic obstructive pulmonary disease) Qualifiers: COPD type: unspecified COPD Qualified Code(s): J44.9 - Chronic obstructive pulmonary disease, unspecified Is this a current diagnosis for this admission?: YesPlan: Continue with IV steroids. Also will give nebulizers as needed. (7) DVT (deep venous thrombosis) Is this a current diagnosis for this admission?: YesPlan: Patient was on Xarelto previously. He is currently getting subcutaneous heparin. Given his hemoglobin has dropped significantly since admission we will continue the heparin at the lower dose for now and see if his hemoglobin continues to drop. (8) Hypertension Qualifiers: Hypertension type: essential hypertension Qualified Code(s): I10 - Essential (primary) hypertension Is this a current diagnosis for this admission?: YesPlan: We will continue on propanolol given his cirrhosis and elevated blood pressure and tachycardia. (9) GERD (gastroesophageal reflux disease) Qualifiers: Esophagitis presence: without esophagitis Qualified Code(s): K21.9 - Gastro-esophageal reflux disease without esophagitis Is this a current diagnosis for this admission?: Yes (10) ETOH abuse Is this a current diagnosis for this admission?: YesPlan: Patient does have a component of delirium tremens and is getting Ativan as well as Haldol when necessary. (11) Hypernatremia Is this a current diagnosis for this admission?: YesPlan: Improving - Time Time Spent with patient: 25-34 minutes - Inpatient Certification Medical Necessity: Need Close Monitoring Due to Risk of Patient Decompensation
[2016-09-24] MEDS: HEPARIN SOD (PORCINE) 5,000 UNIT/ML 1 ML SYRINGE SUBCUT SCH ×2 (12:01→22:46)
[2016-09-24] MEDS: HALOPERIDOL LACTATE INJ 5 MG/1 ML VIAL IV PRN (14:07)
[2016-09-24] MEDS: CIPROFLOXACIN HCL 500 MG TABLET PO SCH (18:13)
[2016-09-25] MEDS: LACTULOSE SYRUP 20 GM/30 ML UDCUP NG SCH ×3 (00:32→11:02)
[2016-09-25] MEDS: METHYLPREDNISOLONE INJ 125 MG/2 ML SDV IV SCH ×2 (01:11→11:38)
[2016-09-25] MEDS: DEXTROSE 5%-1/2 NORMAL SALINE 1,000 ML IV PRN (02:49)
[2016-09-25] MEDS: IPRATROPIUM/ALBUTEROL 0.5-2.5 MG/3 ML AMPUL NEB SCH ×4 (02:55→19:53)
[2016-09-25] MEDS: PROPRANOLOL HCL 10 MG TABLET PO SCH (04:53)
[2016-09-25 05:19] LABS: ABSOLUTE LYMPHOCYTES (AUTO) 0.3 10^3/uL (0.5-4.7); ABSOLUTE MONOCYTES (AUTO) 0.5 10^3/uL (0.1-1.4); ABSOLUTE NEUT (AUTO) 3.7 10^3/uL (1.7-8.2); BASOPHILS % (AUTO) 0.8 % (0-2); HEMATOCRIT 35.9 % (37.9-51.0); HEMOGLOBIN 12.5 g/dL (13.5-17.0); HGB HCT DIFFERENCE 1.6; LYMPHOCYTES % (AUTO) 6.8 % (13-45); MEAN CORPUSCULAR HEMOGLOBIN 41.1 pg (27.0-33.4); MEAN CORPUSCULAR HGB CONC 34.8 g/dL (32.0-36.0); MEAN CORPUSCULAR VOLUME 118 fl (80-97); MONOCYTES % (AUTO) 10.8 % (3-13); RED BLOOD COUNT 3.03 10^6/uL (4.35-5.55); RED CELL DISTRIBUTION WIDTH 14.2 % (11.5-14.0); SEGMENTED NEUTROPHILS % (AUTO) 81.6 % (42-78); WHITE BLOOD COUNT 4.5 10^3/uL (4.0-10.5)
[2016-09-25 05:25] LABS: ANION GAP 7 (5-19); BLOOD UREA NITROGEN 20 mg/dL (7-20); CALCIUM 7.7 mg/dL (8.4-10.2); CARBON DIOXIDE 33 mmol/L (22-30); CHLORIDE 104 mmol/L (98-107); CREATININE RESULT 0.52 mg/dL (0.52-1.25); GLUCOSE 178 mg/dL (75-110); MAGNESIUM 1.8 mg/dL (1.6-2.3); SODIUM 144.3 mmol/L (137-145)
[2016-09-25 05:46] LABS: ANISOCYTOSIS SLIGHT; OVALOCYTES SLIGHT; TARGET CELLS 1+
[2016-09-25] MEDS: POTASSI CL 20 MEQ/50 ML RIDER 20 MEQ/50 ML RTUPB IV SCH ×2 (06:01→08:09)
[2016-09-25] MEDS: CIPROFLOXACIN HCL 500 MG TABLET PO SCH (10:30)
[2016-09-25] MEDS: NEOMYCIN SULFATE 500 MG TABLET NG SCH (10:30)
[2016-09-25] MEDS: HEPARIN SOD (PORCINE) 5,000 UNIT/ML 1 ML SYRINGE SUBCUT SCH (11:33)
--- NOTE | 2016-09-25 11:45 | PDOC PROGRESS REPORT ---
Subjective Progress Note for:: 09/25/16 Subjective:: Patient is confused Physical Exam Vital Signs: Temp Pulse Resp BP Pulse Ox 97.3 F 62 12 181/89 H 96 09/25/16 08:15 09/25/16 08:15 09/25/16 08:15 09/25/16 08:15 09/25/16 08:15 Intake & Output 09/24/16 09/25/16 09/26/16 06:59 06:59 06:59 Intake Total 1702 1820 Output Total 2400 925 Balance -698 895 Weight 78.2 kg 75.6 kg General appearance: PRESENT: disheveled Eye exam: PRESENT: conjunctiva pink, scleral icterus Mouth exam: PRESENT: moist, tongue midline Neck exam: ABSENT: carotid bruit, JVD, lymphadenopathy, thyromegaly Respiratory exam: PRESENT: rhonchi - Coarse rhonchi bilaterally.. ABSENT: rales , wheezes Cardiovascular exam: PRESENT: RRR. ABSENT: diastolic murmur, rubs, systolic murmur GI/Abdominal exam: PRESENT: normal bowel sounds, soft. ABSENT: distended, guarding, mass, organolmegaly, rebound, tenderness Extremities exam: ABSENT: calf tenderness, clubbing, pedal edema Neurological exam: PRESENT: altered, other - There is all 4 extremities spontaneously. Psychiatric exam: PRESENT: agitated Results Laboratory Results: 09/25/16 04:07 09/25/16 04:07 09/25/16 09/25/16 04:07 04:07 WBC 4.5 RBC 3.03 L Hgb 12.5 L Hct 35.9 L MCV 118 H MCH 41.1 H MCHC 34.8 RDW 14.2 H Plt Count 111 L Seg Neutrophils % 81.6 H Lymphocytes % 6.8 L Monocytes % 10.8 Eosinophils % 0.0 Basophils % 0.8 Absolute Neutrophils 3.7 Absolute Lymphocytes 0.3 L Absolute Monocytes 0.5 Absolute Eosinophils 0.0 Absolute Basophils 0.0 Sodium 144.3 Potassium 3.0 L* Chloride 104 Carbon Dioxide 33 H Anion Gap 7 BUN 20 Creatinine 0.52 Est GFR ( Amer) > 60 Est GFR (Non-Af Amer) > 60 Glucose 178 H Calcium 7.7 L Magnesium 1.8 Impressions: Abdomen/Pelvis CT 09/17/16 18:03 IMPRESSION: 1. MARKEDLY HETEROGENOUS DIFFUSE LOW-ATTENUATION THROUGHOUT THE LIVER, MOST LIKELY DUE TO CIRRHOSIS. 2. ASCITES. 3. AVASCULAR NECROSIS OF THE RIGHT AND LEFT FEMORAL HEAD, SIMILAR APPEARANCE COMPARED TO THE PRIOR STUDY. 4. SURGICAL CHANGES WITH RIGHT HEMICOLECTOMY. Paracentesis Ultrasound 09/18/16 02:59 IMPRESSION: Successful ultrasound-guided therapeutic and diagnostic paracentesis Chest X-Ray 09/19/16 00:00 IMPRESSION: SUSPECT DEVELOPING INFILTRATE IN THE LEFT LUNG. Head CT 09/20/16 00:00 IMPRESSION: No acute intracranial abnormality. Chronic changes. KUB X-Ray 09/21/16 08:09 IMPRESSION: NG tube is in place. Gas pattern is nonspecific. Assessment & Plan - Diagnosis (1) Hepatic encephalopathy Is this a current diagnosis for this admission?: YesPlan: The patient is still confused. We will continue with the lactulose. Patient also is on Flagyl. (2) UTI (urinary tract infection) Qualifiers: Urinary tract infection type: site unspecified Is this a current diagnosis for this admission?: YesPlan: Continue with Zosyn. (3) Liver cirrhosis, alcoholic Qualifiers: Ascites presence: with ascites Qualified Code(s): K70.31 - Alcoholic cirrhosis of liver with ascites Is this a current diagnosis for this admission?: YesPlan: Continue lactulose as well as neomycin and Flagyl. (4) Hypokalemia Is this a current diagnosis for this admission?: YesPlan: We'll continue to replete and monitor as needed (5) Hypomagnesemia Is this a current diagnosis for this admission?: YesPlan: We'll give IV magnesium as needed. (6) COPD (chronic obstructive pulmonary disease) Qualifiers: COPD type: unspecified COPD Qualified Code(s): J44.9 - Chronic obstructive pulmonary disease, unspecified Is this a current diagnosis for this admission?: YesPlan: Continue with IV steroids. Also will give nebulizers as needed. (7) DVT (deep venous thrombosis) Is this a current diagnosis for this admission?: YesPlan: Patient was on Xarelto previously. He is currently getting subcutaneous heparin. Given his hemoglobin has dropped significantly since admission but has remained stable. (8) Hypertension Qualifiers: Hypertension type: essential hypertension Qualified Code(s): I10 - Essential (primary) hypertension Is this a current diagnosis for this admission?: YesPlan: We will continue on propanolol given his cirrhosis and elevated blood pressure and tachycardia. (9) GERD (gastroesophageal reflux disease) Qualifiers: Esophagitis presence: without esophagitis Qualified Code(s): K21.9 - Gastro-esophageal reflux disease without esophagitis Is this a current diagnosis for this admission?: Yes (10) ETOH abuse Is this a current diagnosis for this admission?: YesPlan: Patient does have a component of delirium tremens and is getting Ativan as well as Haldol when necessary. (11) Hypernatremia Is this a current diagnosis for this admission?: YesPlan: Improving - Time Time Spent with patient: 25-34 minutes - Inpatient Certification Medical Necessity: Need Close Monitoring Due to Risk of Patient Decompensation
[2016-09-25] MEDS ORDERED: PROPRANOLOL HCL 10 MG TABLET PO SCH (11:46)
--- NOTE | 2016-09-25 13:25 | Progress Note ---
Provider Note Provider Note: Discussed the poor prognosis with the sister who is the next of kin. She is agreeable to making the patient comfort care only. We'll give morphine as needed and DC the BiPAP and just treat with oxygen and morphine.
[2016-09-25] MEDS: MORPHINE SULFATE 10 MG/ML INJ IV PRN (14:44)
[2016-09-26] MEDS: IPRATROPIUM/ALBUTEROL 0.5-2.5 MG/3 ML AMPUL NEB SCH ×2 (02:15→08:17)
[2016-09-26 05:14] LABS: BLOOD UREA NITROGEN 21 mg/dL (7-20); CALCIUM 8.2 mg/dL (8.4-10.2); CREATININE RESULT 0.39 mg/dL (0.52-1.25); GLUCOSE 134 mg/dL (75-110); POTASSIUM 3.5 mmol/L (3.6-5.0)
[2016-09-26 05:15] LABS: ANION GAP 12 (5-19); CARBON DIOXIDE 29 mmol/L (22-30); CHLORIDE 104 mmol/L (98-107); SODIUM 144.9 mmol/L (137-145)
[2016-09-26 05:18] LABS: HEMATOCRIT 38.9 % (37.9-51.0); HEMOGLOBIN 13.8 g/dL (13.5-17.0); HGB HCT DIFFERENCE 2.5; MEAN CORPUSCULAR HEMOGLOBIN 41.3 pg (27.0-33.4); MEAN CORPUSCULAR HGB CONC 35.5 g/dL (32.0-36.0); MEAN CORPUSCULAR VOLUME 116 fl (80-97); RED BLOOD COUNT 3.34 10^6/uL (4.35-5.55); RED CELL DISTRIBUTION WIDTH 14.1 % (11.5-14.0); WHITE BLOOD COUNT 7.8 10^3/uL (4.0-10.5)
[2016-09-26 05:35] LABS: BASOPHILS % (MANUAL) 0 % (0-2); EOSINOPHILS % (MANUAL) 0 % (0-6); LYMPHOCYTES % (MANUAL) 6 % (13-45); TOTAL CELLS COUNTED 100
[2016-09-26 05:36] LABS: TOXIC GRANULATION SLIGHT; TOXIC VACUOLATION PRESENT
[2016-09-26 05:37] LABS: POIKILOCYTOSIS 1+; TARGET CELLS 1+
[2016-09-26] MEDS: MORPHINE SULFATE 10 MG/ML INJ IV PRN (09:46)
--- NOTE | 2016-09-26 14:02 | PDOC PROGRESS REPORT ---
Subjective Progress Note for:: 09/26/16 Subjective:: Patient is confused Physical Exam Vital Signs: Temp Pulse Resp BP Pulse Ox 97.8 F 86 11 L 161/89 H 95 09/25/16 15:38 09/26/16 08:17 09/26/16 08:17 09/25/16 15:38 09/26/16 08:17 Intake & Output 09/25/16 09/26/16 09/27/16 06:59 06:59 06:59 Intake Total 1820 10 Output Total 925 1350 Balance 895 -1340 Weight 75.6 kg 77.3 kg General appearance: PRESENT: mild distress Eye exam: PRESENT: conjunctiva pink, scleral icterus Mouth exam: PRESENT: dry mucosa Neck exam: ABSENT: JVD Respiratory exam: PRESENT: clear to auscultation kathy. ABSENT: rales, rhonchi, wheezes Cardiovascular exam: PRESENT: tachycardia. ABSENT: diastolic murmur, rubs, systolic murmur GI/Abdominal exam: PRESENT: distended, normal bowel sounds, soft. ABSENT: guarding, mass, organolmegaly, rebound Extremities exam: ABSENT: calf tenderness, clubbing, pedal edema Neurological exam: PRESENT: altered Psychiatric exam: PRESENT: agitated Results Laboratory Results: 09/26/16 03:31 09/26/16 03:31 09/26/16 09/26/16 03:31 03:31 WBC 7.8 RBC 3.34 L Hgb 13.8 Hct 38.9 MCV 116 H MCH 41.3 H MCHC 35.5 RDW 14.1 H Plt Count 159 Seg Neutrophils % Not Reportable Lymphocytes % Not Reportable Monocytes % Not Reportable Eosinophils % Not Reportable Basophils % Not Reportable Absolute Neutrophils Not Reportable Absolute Lymphocytes Not Reportable Absolute Monocytes Not Reportable Absolute Eosinophils Not Reportable Absolute Basophils Not Reportable Sodium 144.9 Potassium 3.5 L Chloride 104 Carbon Dioxide 29 Anion Gap 12 BUN 21 H Creatinine 0.39 L Est GFR ( Amer) > 60 Est GFR (Non-Af Amer) > 60 Glucose 134 H Calcium 8.2 L Impressions: Abdomen/Pelvis CT 09/17/16 18:03 IMPRESSION: 1. MARKEDLY HETEROGENOUS DIFFUSE LOW-ATTENUATION THROUGHOUT THE LIVER, MOST LIKELY DUE TO CIRRHOSIS. 2. ASCITES. 3. AVASCULAR NECROSIS OF THE RIGHT AND LEFT FEMORAL HEAD, SIMILAR APPEARANCE COMPARED TO THE PRIOR STUDY. 4. SURGICAL CHANGES WITH RIGHT HEMICOLECTOMY. Paracentesis Ultrasound 09/18/16 02:59 IMPRESSION: Successful ultrasound-guided therapeutic and diagnostic paracentesis Chest X-Ray 09/19/16 00:00 IMPRESSION: SUSPECT DEVELOPING INFILTRATE IN THE LEFT LUNG. Head CT 09/20/16 00:00 IMPRESSION: No acute intracranial abnormality. Chronic changes. KUB X-Ray 09/21/16 08:09 IMPRESSION: NG tube is in place. Gas pattern is nonspecific. Assessment & Plan - Diagnosis (1) Hepatic encephalopathy Is this a current diagnosis for this admission?: YesPlan: The patient is comfort care. (2) UTI (urinary tract infection) Qualifiers: Urinary tract infection type: site unspecified Is this a current diagnosis for this admission?: Yes (3) Liver cirrhosis, alcoholic Qualifiers: Ascites presence: with ascites Qualified Code(s): K70.31 - Alcoholic cirrhosis of liver with ascites Is this a current diagnosis for this admission?: Yes (4) Hypokalemia Is this a current diagnosis for this admission?: Yes (5) Hypomagnesemia Is this a current diagnosis for this admission?: Yes (6) COPD (chronic obstructive pulmonary disease) Qualifiers: COPD type: unspecified COPD Qualified Code(s): J44.9 - Chronic obstructive pulmonary disease, unspecified Is this a current diagnosis for this admission?: Yes (7) DVT (deep venous thrombosis) Is this a current diagnosis for this admission?: Yes (8) Hypertension Qualifiers: Hypertension type: essential hypertension Qualified Code(s): I10 - Essential (primary) hypertension Is this a current diagnosis for this admission?: Yes (9) GERD (gastroesophageal reflux disease) Qualifiers: Esophagitis presence: without esophagitis Qualified Code(s): K21.9 - Gastro-esophageal reflux disease without esophagitis Is this a current diagnosis for this admission?: Yes (10) ETOH abuse Is this a current diagnosis for this admission?: Yes (11) Hypernatremia Is this a current diagnosis for this admission?: Yes - Time Time Spent with patient: 15-24 minutes - Inpatient Certification Medical Necessity: Need Close Monitoring Due to Risk of Patient Decompensation - Plan Summary Plan Summary: Patient is currently comfort care only
[2016-09-26] MEDS: PHARMACY COMMUNICATION ORDER MC NR (22:02)
[2016-09-27] MEDS: MORPHINE SULFATE 10 MG/ML INJ IV PRN ×2 (01:50→09:39)
[2016-09-27] MEDS: PHARMACY COMMUNICATION ORDER MC NR (05:44)
[2016-09-27] MEDS: LORAZEPAM INJ 2 MG/1 ML VIAL IV PRN ×2 (09:39→19:53)
--- NOTE | 2016-09-27 11:33 | PDOC PROGRESS REPORT ---
Subjective Progress Note for:: 09/27/16 Subjective:: Patient is confused Physical Exam Vital Signs: Temp Pulse Resp BP Pulse Ox 97.8 F 78 11 L 161/89 H 95 09/25/16 15:38 09/27/16 07:00 09/26/16 08:17 09/25/16 15:38 09/26/16 08:17 Intake & Output 09/26/16 09/27/16 09/28/16 06:59 06:59 06:59 Intake Total 10 5 Output Total 1350 700 Balance -1340 -695 Weight 77.3 kg 77.8 kg General appearance: PRESENT: mild distress Eye exam: PRESENT: conjunctiva pink, scleral icterus Mouth exam: PRESENT: dry mucosa, tongue midline Neck exam: ABSENT: JVD Respiratory exam: PRESENT: clear to auscultation kathy. ABSENT: rales, rhonchi, wheezes Cardiovascular exam: PRESENT: RRR. ABSENT: diastolic murmur, rubs, systolic murmur GI/Abdominal exam: PRESENT: distended, normal bowel sounds, organolmegaly - Liver edge is palpable., soft. ABSENT: guarding, mass, rebound, tenderness Extremities exam: PRESENT: pedal edema - Trace pedal edema Neurological exam: PRESENT: altered Psychiatric exam: PRESENT: agitated Skin exam: PRESENT: dry, intact, warm. ABSENT: cyanosis, rash Results Laboratory Results: 09/26/16 03:31 09/26/16 03:31 Impressions: Abdomen/Pelvis CT 09/17/16 18:03 IMPRESSION: 1. MARKEDLY HETEROGENOUS DIFFUSE LOW-ATTENUATION THROUGHOUT THE LIVER, MOST LIKELY DUE TO CIRRHOSIS. 2. ASCITES. 3. AVASCULAR NECROSIS OF THE RIGHT AND LEFT FEMORAL HEAD, SIMILAR APPEARANCE COMPARED TO THE PRIOR STUDY. 4. SURGICAL CHANGES WITH RIGHT HEMICOLECTOMY. Paracentesis Ultrasound 09/18/16 02:59 IMPRESSION: Successful ultrasound-guided therapeutic and diagnostic paracentesis Chest X-Ray 09/19/16 00:00 IMPRESSION: SUSPECT DEVELOPING INFILTRATE IN THE LEFT LUNG. Head CT 09/20/16 00:00 IMPRESSION: No acute intracranial abnormality. Chronic changes. KUB X-Ray 09/21/16 08:09 IMPRESSION: NG tube is in place. Gas pattern is nonspecific. Assessment & Plan - Diagnosis (1) Hepatic encephalopathy Is this a current diagnosis for this admission?: YesPlan: The patient is comfort care. (2) UTI (urinary tract infection) Qualifiers: Urinary tract infection type: site unspecified Is this a current diagnosis for this admission?: YesPlan: Antibiotics have been stopped as he is comfort care. (3) Liver cirrhosis, alcoholic Qualifiers: Ascites presence: with ascites Qualified Code(s): K70.31 - Alcoholic cirrhosis of liver with ascites Is this a current diagnosis for this admission?: Yes (4) Hypokalemia Is this a current diagnosis for this admission?: Yes (5) Hypomagnesemia Is this a current diagnosis for this admission?: Yes (6) COPD (chronic obstructive pulmonary disease) Qualifiers: COPD type: unspecified COPD Qualified Code(s): J44.9 - Chronic obstructive pulmonary disease, unspecified Is this a current diagnosis for this admission?: Yes (7) DVT (deep venous thrombosis) Is this a current diagnosis for this admission?: Yes (8) Hypertension Qualifiers: Hypertension type: essential hypertension Qualified Code(s): I10 - Essential (primary) hypertension Is this a current diagnosis for this admission?: Yes (9) GERD (gastroesophageal reflux disease) Qualifiers: Esophagitis presence: without esophagitis Qualified Code(s): K21.9 - Gastro-esophageal reflux disease without esophagitis Is this a current diagnosis for this admission?: Yes (10) ETOH abuse Is this a current diagnosis for this admission?: Yes (11) Hypernatremia Is this a current diagnosis for this admission?: Yes - Time Time Spent with patient: 15-24 minutes - Plan Summary Plan Summary: Patient is comfort care.
[2016-09-28] MEDS: MORPHINE SULFATE 10 MG/ML INJ IV PRN ×4 (00:23→20:42)
[2016-09-28] MEDS: LORAZEPAM INJ 2 MG/1 ML VIAL IV PRN (01:55)
--- NOTE | 2016-09-28 10:34 | PDOC PROGRESS REPORT ---
Subjective Progress Note for:: 09/28/16 Subjective:: Patient is confused Physical Exam Vital Signs: Temp Pulse Resp BP Pulse Ox 97.8 F 91 11 L 161/89 H 95 09/25/16 15:38 09/27/16 19:00 09/26/16 08:17 09/25/16 15:38 09/26/16 08:17 Intake & Output 09/27/16 09/28/16 09/29/16 06:59 06:59 06:59 Intake Total 5 5 Output Total 700 840 Balance -695 -835 Weight 77.8 kg 74.5 kg General appearance: PRESENT: mild distress Eye exam: PRESENT: conjunctiva pink, scleral icterus Mouth exam: PRESENT: dry mucosa Neck exam: ABSENT: JVD Respiratory exam: PRESENT: wheezes - Scattered bilateral expiratory wheezes. ABSENT: rales, rhonchi Cardiovascular exam: PRESENT: tachycardia GI/Abdominal exam: PRESENT: ascites, distended, firm, hypoactive bowel sounds, tenderness - Mild diffuse tenderness but no guarding. ABSENT: guarding, rebound Extremities exam: PRESENT: pedal edema, +1 edema. ABSENT: calf tenderness, clubbing Neurological exam: PRESENT: altered Psychiatric exam: PRESENT: agitated Results Laboratory Results: 09/26/16 03:31 09/26/16 03:31 Impressions: Abdomen/Pelvis CT 09/17/16 18:03 IMPRESSION: 1. MARKEDLY HETEROGENOUS DIFFUSE LOW-ATTENUATION THROUGHOUT THE LIVER, MOST LIKELY DUE TO CIRRHOSIS. 2. ASCITES. 3. AVASCULAR NECROSIS OF THE RIGHT AND LEFT FEMORAL HEAD, SIMILAR APPEARANCE COMPARED TO THE PRIOR STUDY. 4. SURGICAL CHANGES WITH RIGHT HEMICOLECTOMY. Paracentesis Ultrasound 09/18/16 02:59 IMPRESSION: Successful ultrasound-guided therapeutic and diagnostic paracentesis Chest X-Ray 09/19/16 00:00 IMPRESSION: SUSPECT DEVELOPING INFILTRATE IN THE LEFT LUNG. Head CT 09/20/16 00:00 IMPRESSION: No acute intracranial abnormality. Chronic changes. KUB X-Ray 09/21/16 08:09 IMPRESSION: NG tube is in place. Gas pattern is nonspecific. Assessment & Plan - Diagnosis (1) Hepatic encephalopathy Is this a current diagnosis for this admission?: YesPlan: The patient is comfort care. (2) UTI (urinary tract infection) Qualifiers: Urinary tract infection type: site unspecified Is this a current diagnosis for this admission?: YesPlan: Antibiotics have been stopped as he is comfort care. (3) Liver cirrhosis, alcoholic Qualifiers: Ascites presence: with ascites Qualified Code(s): K70.31 - Alcoholic cirrhosis of liver with ascites Is this a current diagnosis for this admission?: YesPlan: Patient is comfort care. (4) Hypokalemia Is this a current diagnosis for this admission?: Yes (5) Hypomagnesemia Is this a current diagnosis for this admission?: Yes (6) COPD (chronic obstructive pulmonary disease) Qualifiers: COPD type: unspecified COPD Qualified Code(s): J44.9 - Chronic obstructive pulmonary disease, unspecified Is this a current diagnosis for this admission?: Yes (7) DVT (deep venous thrombosis) Is this a current diagnosis for this admission?: Yes (8) Hypertension Qualifiers: Hypertension type: essential hypertension Qualified Code(s): I10 - Essential (primary) hypertension Is this a current diagnosis for this admission?: Yes (9) GERD (gastroesophageal reflux disease) Qualifiers: Esophagitis presence: without esophagitis Qualified Code(s): K21.9 - Gastro-esophageal reflux disease without esophagitis Is this a current diagnosis for this admission?: Yes (10) ETOH abuse Is this a current diagnosis for this admission?: Yes (11) Hypernatremia Is this a current diagnosis for this admission?: Yes - Time Time Spent with patient: 15-24 minutes - Plan Summary Plan Summary: Patient is comfort care only now.
[2016-09-28] MEDS: HALOPERIDOL LACTATE INJ 5 MG/1 ML VIAL IV PRN (11:14)
[2016-09-29] MEDS: HALOPERIDOL LACTATE INJ 5 MG/1 ML VIAL IV PRN ×3 (01:37→14:13)
[2016-09-29] MEDS: MORPHINE SULFATE 10 MG/ML INJ IV PRN ×4 (04:22→22:19)
--- NOTE | 2016-09-29 12:34 | PDOC PROGRESS REPORT ---
Subjective Progress Note for:: 09/29/16 Subjective:: Patient remained with altered mental status, did not really show any significant improvement, and family decided to put the patient on comfort measures late last week. Physical Exam Vital Signs: Temp Pulse Resp BP Pulse Ox 97.8 F 91 11 L 161/89 H 95 09/25/16 15:38 09/27/16 19:00 09/26/16 08:17 09/25/16 15:38 09/26/16 08:17 Intake & Output 09/28/16 09/29/16 09/30/16 06:59 06:59 06:59 Intake Total 5 10 Output Total 840 200 Balance -835 -190 Weight 74.5 kg 73.7 kg General appearance: PRESENT: no acute distress Head exam: PRESENT: normocephalic Mouth exam: PRESENT: moist Neck exam: ABSENT: JVD Respiratory exam: PRESENT: rhonchi - Bilateral. ABSENT: wheezes Cardiovascular exam: PRESENT: RRR. ABSENT: gallop GI/Abdominal exam: PRESENT: hypoactive bowel sounds, soft. ABSENT: distended Extremities exam: ABSENT: pedal edema Neurological exam: PRESENT: altered Skin exam: PRESENT: dry, warm. ABSENT: cyanosis Results Laboratory Results: 09/26/16 03:31 09/26/16 03:31 Impressions: Abdomen/Pelvis CT 09/17/16 18:03 IMPRESSION: 1. MARKEDLY HETEROGENOUS DIFFUSE LOW-ATTENUATION THROUGHOUT THE LIVER, MOST LIKELY DUE TO CIRRHOSIS. 2. ASCITES. 3. AVASCULAR NECROSIS OF THE RIGHT AND LEFT FEMORAL HEAD, SIMILAR APPEARANCE COMPARED TO THE PRIOR STUDY. 4. SURGICAL CHANGES WITH RIGHT HEMICOLECTOMY. Paracentesis Ultrasound 09/18/16 02:59 IMPRESSION: Successful ultrasound-guided therapeutic and diagnostic paracentesis Chest X-Ray 09/19/16 00:00 IMPRESSION: SUSPECT DEVELOPING INFILTRATE IN THE LEFT LUNG. Head CT 09/20/16 00:00 IMPRESSION: No acute intracranial abnormality. Chronic changes. KUB X-Ray 09/21/16 08:09 IMPRESSION: NG tube is in place. Gas pattern is nonspecific. Assessment & Plan - Diagnosis (1) Hepatic encephalopathy Is this a current diagnosis for this admission?: Yes (2) Alcohol intoxication Qualifiers: Complication of substance-induced condition: uncomplicated Qualified Code(s): F10.120 - Alcohol abuse with intoxication, uncomplicated Is this a current diagnosis for this admission?: Yes (3) Ascites Qualifiers: Ascites type: due to alcoholic cirrhosis Qualified Code(s): K70.31 - Alcoholic cirrhosis of liver with ascites Is this a current diagnosis for this admission?: Yes (4) UTI (urinary tract infection) Qualifiers: Urinary tract infection type: site unspecified Is this a current diagnosis for this admission?: Yes (5) Liver cirrhosis, alcoholic Qualifiers: Ascites presence: with ascites Qualified Code(s): K70.31 - Alcoholic cirrhosis of liver with ascites Is this a current diagnosis for this admission?: Yes (6) Hypokalemia Is this a current diagnosis for this admission?: Yes (7) Hypomagnesemia Is this a current diagnosis for this admission?: Yes (8) COPD (chronic obstructive pulmonary disease) Qualifiers: COPD type: unspecified COPD Qualified Code(s): J44.9 - Chronic obstructive pulmonary disease, unspecified Is this a current diagnosis for this admission?: Yes (9) Hypertension Qualifiers: Hypertension type: essential hypertension Qualified Code(s): I10 - Essential (primary) hypertension Is this a current diagnosis for this admission?: Yes (10) GERD (gastroesophageal reflux disease) Qualifiers: Esophagitis presence: without esophagitis Qualified Code(s): K21.9 - Gastro-esophageal reflux disease without esophagitis Is this a current diagnosis for this admission?: Yes (11) Avascular necrosis of bones of both hips Is this a current diagnosis for this admission?: Yes (12) History of DVT (deep vein thrombosis) Is this a current diagnosis for this admission?: Yes - Time Time Spent with patient: 15-24 minutes - Plan Summary Plan Summary: Continue comfort measures. We will consult partner integration planner for inpatient hospice.
[2016-09-30] MEDS: MORPHINE SULFATE 10 MG/ML INJ IV PRN ×4 (03:07→20:35)
[2016-09-30] MEDS: HALOPERIDOL LACTATE INJ 5 MG/1 ML VIAL IV PRN ×3 (05:05→17:23)
--- NOTE | 2016-09-30 14:09 | PDOC PROGRESS REPORT ---
Subjective Progress Note for:: 09/30/16 Subjective:: Patient would have episodes of apnea however, he moans intermittently. Patient is on comfort measures. No reported respiratory distress, temperature spikes, nausea or vomiting. Physical Exam Vital Signs: Temp Pulse Resp BP Pulse Ox 98.2 F 96 8 L 122/80 97 09/30/16 03:23 09/30/16 03:23 09/30/16 03:23 09/30/16 03:23 09/30/16 04:41 Intake & Output 09/29/16 09/30/16 10/01/16 06:59 06:59 06:59 Intake Total 10 50 Output Total 200 550 Balance -190 -500 Weight 73.7 kg 73.3 kg General appearance: PRESENT: no acute distress, other - Sedated, altered mental status, unresponsive and nonverbal Head exam: PRESENT: normocephalic Mouth exam: PRESENT: neck supple Neck exam: ABSENT: JVD Respiratory exam: PRESENT: rhonchi - few bilateral Cardiovascular exam: PRESENT: RRR. ABSENT: gallop GI/Abdominal exam: PRESENT: hypoactive bowel sounds, soft. ABSENT: distended Extremities exam: ABSENT: pedal edema Neurological exam: PRESENT: altered Skin exam: PRESENT: dry, warm. ABSENT: cyanosis Results Laboratory Results: 09/26/16 03:31 09/26/16 03:31 Impressions: Abdomen/Pelvis CT 09/17/16 18:03 IMPRESSION: 1. MARKEDLY HETEROGENOUS DIFFUSE LOW-ATTENUATION THROUGHOUT THE LIVER, MOST LIKELY DUE TO CIRRHOSIS. 2. ASCITES. 3. AVASCULAR NECROSIS OF THE RIGHT AND LEFT FEMORAL HEAD, SIMILAR APPEARANCE COMPARED TO THE PRIOR STUDY. 4. SURGICAL CHANGES WITH RIGHT HEMICOLECTOMY. Paracentesis Ultrasound 09/18/16 02:59 IMPRESSION: Successful ultrasound-guided therapeutic and diagnostic paracentesis Chest X-Ray 09/19/16 00:00 IMPRESSION: SUSPECT DEVELOPING INFILTRATE IN THE LEFT LUNG. Head CT 09/20/16 00:00 IMPRESSION: No acute intracranial abnormality. Chronic changes. KUB X-Ray 09/21/16 08:09 IMPRESSION: NG tube is in place. Gas pattern is nonspecific. Assessment & Plan - Diagnosis (1) Hepatic encephalopathy Is this a current diagnosis for this admission?: Yes (2) Alcohol intoxication Qualifiers: Complication of substance-induced condition: uncomplicated Qualified Code(s): F10.120 - Alcohol abuse with intoxication, uncomplicated Is this a current diagnosis for this admission?: Yes (3) Ascites Qualifiers: Ascites type: due to alcoholic cirrhosis Qualified Code(s): K70.31 - Alcoholic cirrhosis of liver with ascites Is this a current diagnosis for this admission?: Yes (4) UTI (urinary tract infection) Qualifiers: Urinary tract infection type: site unspecified Is this a current diagnosis for this admission?: Yes (5) Liver cirrhosis, alcoholic Qualifiers: Ascites presence: with ascites Qualified Code(s): K70.31 - Alcoholic cirrhosis of liver with ascites Is this a current diagnosis for this admission?: Yes (6) Hypokalemia Is this a current diagnosis for this admission?: Yes (7) Hypomagnesemia Is this a current diagnosis for this admission?: Yes (8) COPD (chronic obstructive pulmonary disease) Qualifiers: COPD type: unspecified COPD Qualified Code(s): J44.9 - Chronic obstructive pulmonary disease, unspecified Is this a current diagnosis for this admission?: Yes (9) Hypertension Qualifiers: Hypertension type: essential hypertension Qualified Code(s): I10 - Essential (primary) hypertension Is this a current diagnosis for this admission?: Yes (10) GERD (gastroesophageal reflux disease) Qualifiers: Esophagitis presence: without esophagitis Qualified Code(s): K21.9 - Gastro-esophageal reflux disease without esophagitis Is this a current diagnosis for this admission?: Yes (11) Avascular necrosis of bones of both hips Is this a current diagnosis for this admission?: Yes (12) History of DVT (deep vein thrombosis) Is this a current diagnosis for this admission?: Yes - Time Time Spent with patient: Less than 15 minutes - Plan Summary Plan Summary: Family is at bedside. Care plan was explained. Await hospice evaluation of the patient. Continue comfort measures.
[2016-10-01] MEDS: HALOPERIDOL LACTATE INJ 5 MG/1 ML VIAL IV PRN ×2 (02:07→08:37)
[2016-10-01] MEDS: MORPHINE SULFATE 10 MG/ML INJ IV PRN ×3 (02:07→10:30)
[2016-10-01] MEDS ORDERED: MORPHINE SULFATE 10 MG/ML INJ IV PRN (11:24)
--- NOTE | 2016-10-01 14:18 | PDOC DISCHARGE SUMMARY ---
General - Admit/Disc Date/PCP Admission Date/Primary Care Provider: 09/18/16 02:57 SUSHIL GAO MD Discharge Date: 10/01/16 - Discharge Diagnosis (1) Hepatic encephalopathy Is this a current diagnosis for this admission?: Yes (2) Alcohol intoxication Is this a current diagnosis for this admission?: Yes (3) Ascites Is this a current diagnosis for this admission?: Yes (4) UTI (urinary tract infection) Is this a current diagnosis for this admission?: Yes (5) Liver cirrhosis, alcoholic Is this a current diagnosis for this admission?: Yes (6) Hypokalemia Is this a current diagnosis for this admission?: Yes (7) Hypomagnesemia Is this a current diagnosis for this admission?: Yes (8) COPD (chronic obstructive pulmonary disease) Is this a current diagnosis for this admission?: Yes (9) Hypertension Is this a current diagnosis for this admission?: Yes (10) GERD (gastroesophageal reflux disease) Is this a current diagnosis for this admission?: Yes (11) Avascular necrosis of bones of both hips Is this a current diagnosis for this admission?: Yes (12) History of DVT (deep vein thrombosis) Is this a current diagnosis for this admission?: Yes - Additional Information Resuscitation Status: Full Code Discharge Diet: Other (Comments) - as tolerated Discharge Activity: Activity As Tolerated Home Medications: Albuterol Sulfate [Albuterol Sulfate 2.5mg/3 mL] 3 ml NEB [id number] PRN 09/18/16 Omeprazole 40 mg PO DAILY 09/18/16 Potassium Chloride [K-Tab ER] 20 meq PO DAILY 09/18/16 Rivaroxaban [Xarelto] 20 mg PO DAILY 09/18/16 Spironolactone [Aldactone] 50 mg PO DAILY 09/18/16 Thiamine HCl [Thiamine 100 mg Tablet] 100 mg PO DAILY 09/18/16 Tiotropium [place] [Spiriva Handihaler 18 mcg/dose (30 Dose)] 18 mcg IH DAILY Trazodone HCl [Desyrel] 100 mg PO BID 09/18/16 Haloperidol Lactate [Haldol 5 mg/ml Inj 1 ml Vial] 5 mg IV Q6HP PRN vial Morphine Sulfate [Morphine 10 mg/ml Inj] 2 mg IV Q4HP PRN vial 10/01/16 Additional Information: Patient will be discharged to inpatient hospice for end-of-life care. History of Present Illness Patient complains of: Abdominal pain History of Present Illness: LUKE BEE is a 66 year old male, with underlying COPD, chronic alcoholism was brought to the emergency room because of abdominal pain. Patient found to have abdominal distention, CT of the abdomen and pelvis did show ascites, liver findings suggestive of liver cirrhosis, a vascular necrosis of the hip. The patient was then referred for admission, for possible spontaneous bacterial peritonitis. For details please refer to history and physical examination performed by the admitting physician. Hospital Course Hospital Course: The patient was admitted to [facility]. The patient was hydrated gently, given broad- spectrum antibiotic and paracentesis was ordered. This was performed diagnostic and for therapeutic purpose . His course however was noted for confusion where he was found to have hepatic encephalopathy with elevated ammonia, and lactulose enema was begun. However the patient's mental status did not improve. Ammonia level fluctuates. He eventually developed aspiration pneumonia and was treated empirically. Likewise he showed signs of alcohol withdrawal as well of which the patient was given as needed benzodiazepines. Supplements were given. Patient's respiratory status and mental status did not improve. Patient developed respiratory failure requiring BiPAP, nasogastric tube was placed and lactulose was given through the nasogastric tube. Patient was likewise started on neomycin. Patient was treated for COPD with nebulizers and steroids. Broad-spectrum antibiotics were continued. The patient's total bilirubin was monitored and did not improve. The patient was made DO NOT RESUSCITATE by the family and the next of kin. In terms of the patient's jaundice, it likewise did not improve. Bilirubin level fluctuates. Treatment were continued for hepatic encephalopathy, alcohol withdrawal, COPD, and aspiration without significant improvement. Patient's overall condition and prognosis remain poor, it was discussed with the family regarding his case and condition and he was made comfort measures only. He is on Haldol as needed for agitation and morphine as needed for pain and comfort. brand planner was consulted for hospice, patient eventually transferred to inpatient facility hospice when family agreed. The rest of the hospital stays unremarkable. Physical Exam Vital Signs: Temp Pulse Resp BP Pulse Ox 97.0 F 81 7 L 135/72 H 93 10/01/16 11:31 10/01/16 11:31 10/01/16 11:31 10/01/16 11:31 10/01/16 11:31 Intake & Output 09/30/16 10/01/16 10/02/16 06:59 06:59 06:59 Intake Total 50 30 0 Output Total 550 145 375 Balance -500 -115 -375 Weight 73.3 kg 71.4 kg General appearance: PRESENT: other - Sedated Eye exam: PRESENT: scleral icterus Mouth exam: PRESENT: dry mucosa Respiratory exam: PRESENT: decreased breath sounds - Bilateral, rhonchi - Bilateral, few Cardiovascular exam: PRESENT: RRR GI/Abdominal exam: PRESENT: distended - Slightly, soft Extremities exam: PRESENT: +1 edema Neurological exam: PRESENT: altered - Stuporous Psychiatric exam: ABSENT: agitated Focused psych exam: ABSENT: restlessness Skin exam: PRESENT: dry, warm. ABSENT: cyanosis Results Laboratory Results: 09/26/16 03:31 09/26/16 03:31 Impressions: Abdomen/Pelvis CT 09/17/16 18:03 IMPRESSION: 1. MARKEDLY HETEROGENOUS DIFFUSE LOW-ATTENUATION THROUGHOUT THE LIVER, MOST LIKELY DUE TO CIRRHOSIS. 2. ASCITES. 3. AVASCULAR NECROSIS OF THE RIGHT AND LEFT FEMORAL HEAD, SIMILAR APPEARANCE COMPARED TO THE PRIOR STUDY. 4. SURGICAL CHANGES WITH RIGHT HEMICOLECTOMY. Paracentesis Ultrasound 09/18/16 02:59 IMPRESSION: Successful ultrasound-guided therapeutic and diagnostic paracentesis Chest X-Ray 09/19/16 00:00 IMPRESSION: SUSPECT DEVELOPING INFILTRATE IN THE LEFT LUNG. Head CT 09/20/16 00:00 IMPRESSION: No acute intracranial abnormality. Chronic changes. KUB X-Ray 09/21/16 08:09 IMPRESSION: NG tube is in place. Gas pattern is nonspecific. Qualifiers PATEINT BEING DISCHARGED WITH ANY OF THE FOLLOWING DIAGNOSIS?: No Plan Discharge Plan: Transfer to inpatient hospice for further management and care. Patient will be followed by hospice physician. Time Spent: Less than 30 Minutes
[2016-10-01 14:27] VITALS: BP 166/93
== END 2016-10-01 14:30 | disposition hospice, inpatient (51) | DRG 432 ==
LOC: ER 16:08 → EH 09-18 00:53 → UNDOADMIN 09-18 00:53 → EH 09-18 02:57 → 3N 09-18 03:55 → EH 09-18 03:55
PROVIDERS: ADMIT Family Medicine; ATTEND Family Medicine
PROC: 0W9G3ZX Drainage of Peritoneal Cavity, Percutaneous Approach, Diagnostic (ICD-10-PCS; principal; 2016-09-18)
PROC: 3E0F73Z Introduction of Anti-inflammatory into Respiratory Tract, Via Natural or Artificial Opening (ICD-10-PCS; 2016-09-18)
PROC: 5A09457 Assistance with Respiratory Ventilation, 24-96 Consecutive Hours, Continuous Positive Airway Pressure (ICD-10-PCS; 2016-09-20)
DX: K70.31 Alcoholic cirrhosis of liver with ascites (principal); J69.0 Pneumonitis due to inhalation of food and vomit; J96.90 Respiratory failure, unspecified, unspecified whether with hypoxia or hypercapnia; F10.239 Alcohol dependence with withdrawal, unspecified; N39.0 Urinary tract infection, site not specified; M90.552 Osteonecrosis in diseases classified elsewhere, left thigh; M90.551 Osteonecrosis in diseases classified elsewhere, right thigh; E87.0 Hyperosmolality and hypernatremia; F10.229 Alcohol dependence with intoxication, unspecified; K70.40 Alcoholic hepatic failure without coma; Z78.1 Physical restraint status; Z66 Do not resuscitate; Y90.3 Blood alcohol level of 60-79 mg/100 ml; E87.6 Hypokalemia; E83.42 Hypomagnesemia; J44.9 Chronic obstructive pulmonary disease, unspecified; I10 Essential (primary) hypertension; K21.9 Gastro-esophageal reflux disease without esophagitis; F17.210 Nicotine dependence, cigarettes, uncomplicated; M19.90 Unspecified osteoarthritis, unspecified site; F32.9 Major depressive disorder, single episode, unspecified; Z86.718 Personal history of other venous thrombosis and embolism; Z91.14 Patient's other noncompliance with medication regimen; Z60.2 Problems related to living alone; Z79.899 Other long term (current) drug therapy
CPT/HCPCS: 36415; 49083; 70450; 71010; 74000; 74176; 74177; 80048; 80053; 80307; 81001; 82140; 82272; 82803; 82962; 83605; 83690; 83735; 84443; 85025; 85027; 85610; 85730; 87040; 87070; 87075; 87086; 87205; 89050; 93005; 93010; 94640; 94660; 96365; 96375; 99291; J0696; J1630; J1644; J2060; J2270; J2405; J2543; J2930; J3370; J3411; J3475; J3480; J3490; J7030; J7620; P9047